=== PATIENT | male | born 1965 | race Caucasian/White ===

== ENCOUNTER 2022-07-08 06:26 | Emergency (ER) | payer OTHER, SELFPAY ==
--- NOTE | ~2022-07-08 | CT_ITS ---
EXAMINATION: CT HEAD WITHOUT CONTRAST CLINICAL INFORMATION: Head injury. COMPARISON: None available. TECHNIQUE: Contiguous axial imaging was performed from the skull base to vertex without intravenous administration of contrast. Coronal and sagittal reformatted images were obtained. This CT examination was performed using dose optimization techniques as appropriate, variously including the following: *Automated exposure control *Adjustment of mA and/or kV according to patient size (this includes techniques or standardized protocols for targeted exams where dose is matched to indication/reason for exam; i.e. extremities or head) *Use of iterative reconstruction technique DLP: 733 mGy-cm FINDINGS: The cortical sulci are normal. The lateral ventricles are symmetrical. The third and fourth ventricles are in their normal midline position. The basilar and prepontine cisterns are unremarkable. There is no acute intra or extracerebral abnormality. There is no mass effect or midline shift. Sections through the bony calvarium are unremarkable. The paranasal sinuses show mild mucosal thickening in the ethmoid sinuses, right greater than left. Small retention cyst versus inflammatory polyps are seen in the right maxillary, right sphenoid and left maxillary sinuses. The bony orbits and orbital contents are unremarkable. Mild anterior nasal septal deviation, apex of the right is noted. CT/CT head/brain wo IV con IMPRESSION: 1. No acute intracranial pathology. 2. Mild inflammatory changes in the paranasal sinuses.
--- NOTE | ~2022-07-08 | XR_ITS ---
EXAMINATION: XR CHEST CLINICAL INFORMATION: Generalized weakness. COMPARISON: 10/23/2016 chest radiograph. TECHNIQUE: Frontal view of the chest was obtained. FINDINGS: No significant abnormality is noted involving the heart, lungs, mediastinum, bony thorax or soft tissues. XR/XR chest 1V IMPRESSION: No acute cardiopulmonary process.
[2022-07-08 06:33] VITALS: BP 128/90; BP 132/81; PULSE 78; RESP 20; TEMP 36.7; O2SAT 90; O2SAT 94; BMI 38.6
--- NOTE | 2022-07-08 06:38 | ECG_ITS ---
Test Reason : SYNCOPE Blood Pressure : / mmHG Vent. Rate : 081 BPM Atrial Rate : 081 BPM P-R Int : 200 ms QRS Dur : 088 ms QT Int : 374 ms P-R-T Axes : 034 005 017 degrees QTc Int : 434 ms Normal sinus rhythm Normal ECG When compared with ECG of 23-OCT-2016 11:21, No significant change was found Referred By: Generic ED Physician Electronically Signed By:BENEDICT CROSS MD
[2022-07-08 06:56] LABS: MANUAL DIFF FLAG NO
[2022-07-08 07:03] LABS: Basophils Absolute Auto 0.1 X10*3/uL (0.0-0.2); Basophils Percent Auto 1.5 % (0-2); Eosinophils Absolute Auto 0.1 X10*3/uL (0.0-0.4); Eosinophils Percent Auto 2.2 % (0-4); Hematocrit 35.2 % (42.0-52.0); Hemoglobin 11.7 g/dl (14.0-18.0); Imm Gran Abs Auto 0.01 X10*3/uL (0.00-0.03); Imm Gran Pct Auto 0.2 % (0.0-0.4); Lymphocytes Absolute Auto 1.9 X10*3/uL (1.2-4.9); Mean Corpuscular HGB Conc 33.2 g/dl (31.0-36.0); Mean Corpuscular Hemoglobin 26.5 pg (27.0-33.0); Mean Corpuscular Volume 79.6 fL (80.0-98.0); Mean Platelet Volume 9.5 fL (9.4-12.4); Monocytes Absolute Auto 0.4 X10*3/uL (0.1-1.2); Monocytes Percent Auto 7.8 % (2-11); Neutrophils Absolute Auto 2.2 x10*3/uL (2.0-8.3); Neutrophils Percent Auto 48.3 % (45-73); Platelet Count 216 X10*3/uL (160-400); Red Blood Count 4.42 X10*6/uL (4.60-5.80); Red Cell Distribution Width 13.8 % (11.0-16.0); White Blood Count 4.6 X10*3/uL (4.8-10.8)
--- NOTE | 2022-07-08 07:14 | ED_ITS ---
HPI - General Adult General Chief complaint: Fall Stated complaint: Weakness/fall/bilateral leg pain Time Seen by Provider: 07/08/22 07:04 Source: patient Mode of arrival: EMS Limitations: no limitations History of Present Illness HPI narrative: 56-year-old male who presents with generalized weakness and falls. Patient's symptoms started yesterday. He fell striking the back of his head. He is unclear whether he lost consciousness. He does have a [id number] headache. Headache is in the occipital area that does not radiate. Not associated with nausea, vomiting, photophobia. He denies any neck pain. Regarding the fall, he reports having felt numbness and generalized weakness in his bilateral lower extremities with sharp pains which brought him to fall. He had several episodes of this yesterday. He denied any chest pain, shortness breath, palpitations, lightheadedness. He does complain of some dysuria but no frequency, urgency. No blood in the urine. Denies any abdominal pain. He had 1 episode of nausea vomiting yesterday. He has had episodes like this in the past but not as severe as today. Right now his predominant complaint is bilateral lower extremity sharp pain. It is generalized in lower extremities. Does not radiate. There is no clear relieving or exacerbating features. He denies any swelling. Pain is generally in the lower extremities. He denies any loss of bowel or bladder control. Denies any saddle paresthesias. Denies any fevers or chills. Related Data Allergies Allergy/AdvReac Type Severity Reaction Status Date / Time aspirin [ASA] Allergy Unknown vomiting Unverified 11/22/19 14:50 Penicillins [PENICILLINS] Allergy Unknown pt states Unverified 11/22/19 14:50 he turns red PMFSH Social History Social History Alcohol intake: never Smoked in Last 30 Days: No Use of substances other than those prescribed or required for medical reasons: No Advance Directives: No Physical Exam ED Vital Signs: Vital Signs - 24 hr 07/08/22 06:33 07/08/22 07:32 07/08/22 08:01 Temperature 98.0 F 97.8 F 97.6 F Pulse Rate 78 77 76 Respiratory Rate 20 19 16 Blood Pressure 132/81 133/87 120/77 Pulse Oximetry 90 L 94 Oxygen Delivery Method Room Air Nasal Cannula Oxygen Flow Rate 2 07/08/22 08:09 07/08/22 09:28 07/08/22 10:35 Temperature 97.6 F 97.6 F 98.4 F Pulse Rate 75 75 79 Respiratory Rate 16 12 16 Blood Pressure 120/77 125/85 115/69 Pulse Oximetry 95 95 95 Oxygen Delivery Method Nasal Cannula Nasal Cannula Room Air Oxygen Flow Rate 2 2 BMI result Body Mass Index 38.6 GEN: Well developed, no acute distress, alert, oriented HEENT: Normocephalic, atraumatic, normal external ears, nose appears normal, no oropharyngeal edema or exudates Eyes: Normal to appearance Neck: Supple, no lymphadenopathy Respiratory: Talks in complete sentences, no respiratory distress, clear to auscultation bilaterally Cardiovascular: Regular rate and rhythm, no murmurs rubs or gallops Abdomen: Soft, nontender, nondistended, no guarding, no rebound Back: No CVA tenderness Extremities: No clubbing cyanosis or edema Neurologic: No focal neurologic deficits, cranial nerves 2-12 intact, strength is 5/5 bilaterally Skin: No rash Course Course Course Narrative: 56-year-old male presents with generalized weakness, bilateral leg pain. His examination was nonfocal. His abdomen was benign. He has no neck pain, tenderness and no nuchal rigidity. He is claiming have occipital head pain where he struck his head. He is unclear whether he lost consciousness. Patient will have laboratory analysis performed including urinalysis. I will provided with analgesia and antiemetics. Will provided with IV fluids and re-evaluate following workup. Reevaluation(s) Reevaluation #1: Patient's workup is complete. There are no significant acute abnormalities indicating why he patient may have fallen. There is no evidence of significant traumatic injury. Patient has been able to ambulate with a walker which is his baseline. He is complaining of bilateral leg pain. He has been provided with Tylenol. We discussed discharge and is comfortable with discharge at this time patient of it is aware of reasons to return to the hospital. Time: 11:29 Medications Administered Discontinued Medications Generic Name Dose Route Start Last Admin Trade Name Freq PRN Reason Stop Dose Admin Sodium Chloride 1,000 mls @ 999 mls/hr 07/08/22 07:15 07/08/22 09:30 Ns IV 07/08/22 08:15 Infused .Q1H1M JESSICA Infusion Iohexol 100 ml 07/08/22 08:18 07/08/22 08:25 Iohexol 350 Mg/Ml 100 Ml Infus..Btl IV 07/08/22 08:19 Not Given ONCE ONE Medical Decision Making Medical Decision Making [facility] Narrative: 56-year-old male with diabetes, seizure disorder presents after multiple falls in last 24 hours. His examination was benign except he appeared generally weak with dry mucous membranes. His abdomen was soft and nontender. His lungs are clear to auscultation bilaterally. Our plan will be to obtain routine laboratory analysis including urinalysis. We will obtain a CT scan of the head given his head injury and unclear whether he lost consciousness. Will take a chest x-ray in order to make sure there are no cardiac infiltrates causing his weakness although his lungs are clear to auscultation. His abdomen was soft and nontender. There is no indication for emergent imaging at this time. There is unlikely to be colitis, diverticulitis, gastroenteritis, biliary colic, catastrophic abdominal pathology. Differential Diagnosis Differential Diagnoses: The differential diagnosis associated with the presentation includes (Weakness, anemia, hyponatremia, hypokalemia, glucose metabolism issue, myositis, viral syndrome) Admission/Observation Consideration of admission/observation: Escalation of care including admission/observation considered Lab Data [facility] Lab Attestation statement: I reviewed the patient's lab results. 07/08/22 06:52 07/08/22 06:52 Labs: Lab Results 07/08/22 07/08/22 07/08/22 Range/Units 06:52 06:52 06:52 WBC 4.6 L (4.8-10.8) X10*3/uL RBC 4.42 L (4.60-5.80) X10*6/uL Hgb 11.7 L (14.0-18.0) g/dl Hct 35.2 L (42.0-52.0) % MCV 79.6 L (80.0-98.0) fL MCH 26.5 L (27.0-33.0) pg MCHC 33.2 (31.0-36.0) g/dl RDW 13.8 (11.0-16.0) % Plt Count 216 (160-400) X10*3/uL MPV 9.5 (9.4-12.4) fL Immature Gran % (Auto) 0.2 (0.0-0.4) % Neut % (Auto) 48.3 (45-73) % Lymph % (Auto) 40.0 (20-40) % Esmeralda % (Auto) 7.8 (2-11) % Eos % (Auto) 2.2 (0-4) % Baso % (Auto) 1.5 (0-2) % Lymph # (Auto) 1.9 (1.2-4.9) X10*3/uL Esmeralda # (Auto) 0.4 (0.1-1.2) X10*3/uL Eos # (Auto) 0.1 (0.0-0.4) X10*3/uL Baso # (Auto) 0.1 (0.0-0.2) X10*3/uL Abs Immat Gran (auto) 0.01 (0.00-0.03) X10*3/uL Absolute Neuts (auto) 2.2 (2.0-8.3) x10*3/uL Absolute Nucleated RBC 0.000 (0.0-0.012) X10*3/uL Nucleated RBC % (auto) 0.0 (0.0-0.2) /100WBC Sodium 131 L (135-145) mmol/L Potassium 4.1 (3.3-5.1) mmol/L Chloride 95 L (96-108) mmol/L Carbon Dioxide 25 (22-29) mmol/L Anion Gap 15 (12-20) BUN 6 L (9-16) mg/dL Creatinine 0.72 (0.5-1.4) mg/dL Estim Creat Clear Calc 126.6 Estimated GFR > 60 Random Glucose 133 H (60-115) mg/dL Estimat Average Glucose 148 mg/dL Hemoglobin A1c % 6.8 % Calcium 8.8 (8.4-10.2) mg/dL Total Bilirubin 0.3 (0.0-1.0) mg/dL AST 30 (5-37) U/L ALT 37 (0-40) U/L Alkaline Phosphatase 76 (39-117) U/L Total Creatine Kinase 102 (38-174) U/L Total Protein 6.7 (6.5-8.0) g/dL Albumin 3.9 (3.5-5.0) g/dL Urine Color Urine Appearance Urine pH (5.0-9.0) Ur Specific Penfield (1.005-1.025) Urine Protein (Neg-Trace) mg/dL Urine Glucose (UA) (Negative) mg/dL Urine Ketones (Negative) mg/dL Urine Blood (Negative) Urine Nitrite (Negative) Ur Leukocyte Esterase (Negative) 07/08/22 Range/Units 07:38 WBC (4.8-10.8) X10*3/uL RBC (4.60-5.80) X10*6/uL Hgb (14.0-18.0) g/dl Hct (42.0-52.0) % MCV (80.0-98.0) fL MCH (27.0-33.0) pg MCHC (31.0-36.0) g/dl RDW (11.0-16.0) % Plt Count (160-400) X10*3/uL MPV (9.4-12.4) fL Immature Gran % (Auto) (0.0-0.4) % Neut % (Auto) (45-73) % Lymph % (Auto) (20-40) % Esmeralda % (Auto) (2-11) % Eos % (Auto) (0-4) % Baso % (Auto) (0-2) % Lymph # (Auto) (1.2-4.9) X10*3/uL Esmeralda # (Auto) (0.1-1.2) X10*3/uL Eos # (Auto) (0.0-0.4) X10*3/uL Baso # (Auto) (0.0-0.2) X10*3/uL Abs Immat Gran (auto) (0.00-0.03) X10*3/uL Absolute Neuts (auto) (2.0-8.3) x10*3/uL Absolute Nucleated RBC (0.0-0.012) X10*3/uL Nucleated RBC % (auto) (0.0-0.2) /100WBC Sodium (135-145) mmol/L Potassium (3.3-5.1) mmol/L Chloride (96-108) mmol/L Carbon Dioxide (22-29) mmol/L Anion Gap (12-20) BUN (9-16) mg/dL Creatinine (0.5-1.4) mg/dL Estim Creat Clear Calc Estimated GFR Random Glucose (60-115) mg/dL Estimat Average Glucose mg/dL Hemoglobin A1c % % Calcium (8.4-10.2) mg/dL Total Bilirubin (0.0-1.0) mg/dL AST (5-37) U/L ALT (0-40) U/L Alkaline Phosphatase (39-117) U/L Total Creatine Kinase (38-174) U/L Total Protein (6.5-8.0) g/dL Albumin (3.5-5.0) g/dL Urine Color Yellow Urine Appearance Clear Urine pH 7.5 (5.0-9.0) Ur Specific Penfield 1.010 (1.005-1.025) Urine Protein Negative (Neg-Trace) mg/dL Urine Glucose (UA) Negative (Negative) mg/dL Urine Ketones Negative (Negative) mg/dL Urine Blood Negative (Negative) Urine Nitrite Negative (Negative) Ur Leukocyte Esterase Negative (Negative) Independent Interpretation I performed an independent interpretation of an: EKG (Normal some heart rate 81, nonspecific T-wave changes, no acute ST elevations or depressions, normal intervals), Plain X-Ray (Chest: NAD) and CT Scan (Head: no acute intracranial pathology) Radiology Impression Discussion of test interpretation with radiology: I have reviewed the radio logist's reading. ( CT/CT head/brain wo IV con IMPRESSION: 1. No acute intracranial pathology. 2. Mild inflammatory changes in the paranasal sinuses. Dictated By:Zach Saldanaigned By:<Electronically signed by Zach Saldana MD in [place]>07/08/22 0802) Radiologist Impression: XR/XR chest 1V IMPRESSION: No acute cardiopulmonary process. ? Dictated By: Zach Saldana MD External Record Review External record reviewed: Other (No patient records available) Prescription Management I considered prescription management with: Pain Medication and Antibiotic Chronic Conditions Patient?s care impacted by: Diabetes Discharge Plan Discharge Clinical Impression: Generalized weakness, Head injury, Bilateral leg pain Patient Disposition: Home, Self-Care Instructions: Leg Pain (ED), Weakness (ED), Head Injury (ED) Referrals: Physician,Unknown J [Primary Care Provider] - 2 days
[2022-07-08 07:17] LABS: Anion Gap 15 (12-20)
[2022-07-08 07:23] LABS: Alanine Aminotransferase 37 U/L (0-40); Albumin Level 3.9 g/dL (3.5-5.0); Alkaline Phosphatase 76 U/L (39-117); Aspartate Amino Transferase 30 U/L (5-37); Bilirubin Total 0.3 mg/dL (0.0-1.0); Blood Urea Nitrogen 6 mg/dL (9-16); Calcium 8.8 mg/dL (8.4-10.2); Carbon Dioxide 25 mmol/L (22-29); Chloride 95 mmol/L (96-108); Creatinine Clr Calc Pharmacy 126.6; Estimated Glomerular Filt Rate > 60; Glucose Random 133 mg/dL (60-115); Potassium 4.1 mmol/L (3.3-5.1); Sodium 131 mmol/L (135-145); Total Protein 6.7 g/dL (6.5-8.0)
[2022-07-08 07:32] VITALS: BP 133/87; PULSE 77; RESP 19; TEMP 36.6; O2SAT 94
--- NOTE | 2022-07-08 07:40 | MHC.EDTECH ---
Pt placed on bed crespo. Urinal given to pt. Urine sample collected and sent to lab. call sumner in reach, able to make needs known.
[2022-07-08 07:48] LABS: Appearance Urine Clear; Color Urine Yellow; Glucose Urine UA Negative (Negative); Leukocyte Esterase Urine Negative (Negative); Nitrite Urine Negative (Negative); PH 7.5 (5.0-9.0); Urine Blood Negative (Negative); Urine Ketones Negative (Negative); Urine Protein Negative (Neg-Trace)
[2022-07-08 08:01] VITALS: BP 120/77; PULSE 76; RESP 16; TEMP 36.4
[2022-07-08 08:04] LABS: Estimated Average Glucose 148 mg/dL; Hemoglobin A1c % 6.8 %
[2022-07-08 08:09] VITALS: BP 120/77; PULSE 75; RESP 16; TEMP 36.4; O2SAT 95
[2022-07-08] MEDS: 0.9 % Sodium Chloride 1,000 ML 999 ML IV (08:11)
--- NOTE | 2022-07-08 08:14 | PC.NURSE ---
pt is a/o x 4 no sob/george speaks in full sentences. lungs - cta. heart sounds - regular. abd soft and non-tender, bs + x 4 quads. c/o 9/10 eda leg pain. pt is aware of plan of care.
[2022-07-08 09:28] VITALS: BP 125/85; PULSE 75; RESP 12; TEMP 36.4; O2SAT 95
--- NOTE | 2022-07-08 10:23 | MHC.EDTECH ---
Full bed change completed. Pt returned to bed and reconnected to monitor. Call sumner in reach. Bed in low, locked position.
[2022-07-08 10:35] VITALS: BP 115/69; PULSE 79; RESP 16; TEMP 36.9; O2SAT 95
--- NOTE | 2022-07-08 11:34 | PC.NURSE ---
PT AMBULATES TO THE BATHROOM, HE HAD A STEADY GAIT, STATES HE USES AN ASSISTIVE DEVICE THAT IS HOME
[2022-07-08] MEDS: Acetaminophen 325 MG TABLET 975 MG PO (11:45)
== END 2022-07-08 11:58 | disposition home or self-care (01) ==
PROVIDERS: Emergency Provider Emergency Medicine
DX: R53.1 Weakness (principal); S09.90XA Unspecified injury of head, initial encounter; W17.89XA Other fall from one level to another, initial encounter; M79.605 Pain in left leg; M79.604 Pain in right leg; E11.9 Type 2 diabetes mellitus without complications; Z91.81 History of falling; Y93.9 Activity, unspecified; Y92.039 Unspecified place in apartment as the place of occurrence of the external cause; Y99.9 Unspecified external cause status
CPT/HCPCS: 36415; 70450; 71045; 80053; 81003; 82550; 83036; 85025; 93005; 96360; 99284; 99285; Q9967

== ENCOUNTER 2025-02-09 17:01 | Emergency (ER) | payer OTHER, SELFPAY ==
--- NOTE | ~2025-02-09 | CT_ITS ---
CLINICAL HISTORY: lower abd pain CT abdomen and pelvis with contrast Comparison: None provided Findings: The lung bases are clear. Kidneys, spleen, adrenal glands, pancreas are unremarkable. The liver is normal in size, however there is diffuse fatty infiltration. The gallbladder is absent. No intrahepatic biliary dilatation. The common bile duct measures up to 8 mm in diameter, likely due to reservoir effect. No bowel obstruction, pneumoperitoneum, or pneumatosis. There are scattered colonic diverticula, however no evidence of diverticulitis. Abdominal aorta is normal caliber. No lymphadenopathy. Pelvic contents unremarkable. Normal appendix. Urinary bladder and prostate gland are unremarkable. The bones are intact. No acute fracture deformity. Chronic appearing compression deformity at T7. IMPRESSION: No acute findings. Hepatic steatosis. This document has been electronically signed by: Richmond Amanda MD on 02/09/2025 20:36:15
[2025-02-09 17:04] VITALS: BP 137/76; BP 170/110; PULSE 90; PULSE 92; RESP 22; TEMP 36.6; O2SAT 94; O2SAT 97; BMI 39.5
--- OUTSIDE RECORDS SUMMARY | 2025-02-09 17:41 | XMS_ITS | Continuity of Care Document ---
Author Name [facility], Medical Address [address] [place] [id number] Organization Unknown Address [address] [place] [address] Medications No known medications Problems No known problems
--- OUTSIDE RECORDS SUMMARY | 2025-02-09 17:41 | XMS_ITS | Clinical Summary ---
Author Organization [facility] Address [address] [place] [address] Phone Care Team Providers Care Special Effects Specialist Name Role Phone Steffany Claire MD Primary Care Provider [phone] Allergies Active Allergy Reactions Criticality Noted Date Comments Aspirin Nausea And Vomiting 02/11/2024 Penicillins Nausea And Vomiting 02/11/2024 Medications famotidine (PEPCID) 40 mg tablet Take 1 tablet (40 mg total) by mouth 2 (two) times a day. Active albuterol HFA (PROAIR HFA ; PROVENTIL HFA ; VENTOLIN HFA) 90 mcg/actuation inhaler Inhale 2 puffs by mouth every 6 (six) hours if needed for wheezing. Active multivitamin tablet Take 1 tablet by mouth 1 (one) time each day. Active amLODIPine (NORVASC) 10 mg tablet Take 1 tablet (10 mg total) by mouth 2 (two) times a day. Active riboflavin (VITAMIN B2) 100 mg tablet Take 1 tablet (100 mg total) by mouth 1 (one) time each day. Active metoprolol tartrate (LOPRESSOR) 50 mg tablet Take 1 tablet (50 mg total) by mouth 2 (two) times a day. Active pravastatin (PRAVACHOL) 40 mg tablet Take 1 tablet (40 mg total) by mouth at bedtime. Active meclizine (ANTIVERT) 25 mg tablet Take 1 tablet (25 mg total) by mouth 3 (three) times a day if needed for dizziness. Active acetaminophen (TYLENOL 8 HOUR) 650 mg 8 hr tablet Take 1 tablet (650 mg total) by mouth every 8 (eight) hours if needed for mild pain. Do not crush, chew, or split. Active clopidogreL (PLAVIX) 75 mg tablet Take 1 tablet (75 mg total) by mouth 1 (one) time each day. Active semaglutide (Rybelsus) 7 mg tablet Take 1 tablet (7 mg total) by mouth 1 (one) time each day. Take with 4 ounces (1/2 cup) of water on empty stomach, 30 min prior to other medication or food. Active loratadine (CLARITIN REDITABS) 10 mg dispersible tablet Dissolve 1 tablet (10 mg total) on top of the tongue 1 (one) time each day. Active SUMAtriptan (IMITREX) 25 mg tablet Take 1 tablet (25 mg total) by mouth 1 (one) time if needed for migraine. May repeat dose once in 2 hours if no relief. Do not exceed 2 doses in 24 hours. Active OXcarbazepine (TRILEPTAL) 150 mg tablet Take 1 tablet (150 mg total) by mouth 3 (three) times a day. Active OXcarbazepine (TRILEPTAL) 300 mg tablet Take 1 tablet (300 mg total) by mouth 3 (three) times a day. Active gabapentin (NEURONTIN) 300 mg capsule Take 1 capsule (300 mg total) by mouth 2 (two) times a day. Active lacosamide (Vimpat) 100 mg tablet Take 1 tablet (100 mg total) by mouth 2 (two) times a day. Active benztropine (COGENTIN) 0.5 mg tablet Take 1 tablet (0.5 mg total) by mouth 2 (two) times a day. Active ziprasidone (GEODON) 80 mg capsule Take 1 capsule (80 mg total) by mouth 2 (two) times a day with meals. Active perphenazine 4 mg tablet Take 1 tablet (4 mg total) by mouth 2 (two) times a day. Active oxymetazoline (AFRIN) 0.05 % nasal spray Administer 2 sprays into each nostril 2 (two) times a day for 3 days. 30 mL 08/06/19 25 Active guaiFENesin (MUCINEX) 600 mg 12 hr tablet Take 2 tablets (1,200 mg total) by mouth 2 (two) times a day. Do not crush, chew, or split. 120 each 08/06/19 25 026 Active erythromycin 5 mg/gram (0.5 %) ophthalmic ointment Apply to left eye every 8 (eight) hours. Place a 1/2 inch ribbon of ointment into the lower eyelid. 1 g 09/04/19 25 Active ondansetron (ZOFRAN) 4 mg tabletIndicatio ns:Nausea and vomiting, unspecified vomiting type Take 1 tablet (4 mg total) by mouth every 6 (six) hours for 3 days. 12 tablet 01/13/20 25 025 Discontinued ondansetron (ZOFRAN) 4 mg tabletIndicatio ns:Nausea and vomiting, unspecified vomiting type Take 1 tablet (4 mg total) by mouth every 6 (six) hours for 3 days. 12 tablet 01/13/20 25 025 Active Problems No known active problems Encounters Date Type Department Care Team Description 01/11/2025 9:48 PM EST - 01/12/2025 3:57 AM EST Emergency [facility] Emergency [address] [place] [address] Nausea and vomiting, unspecified vomiting type (Primary Dx); Constipation, unspecified constipation type Discharge Disposition: Home or Self Care 01/01/2025 3:48 PM EDT - 01/01/2025 6:18 PM EDT [facility] Emergency [address] [place] [phone] Christophe Woodruff MD Fainsod, Joshua, MD Chest pain, unspecified type (Primary Dx); Acute non-recurrent maxillary sinusitis Discharge Disposition: Home or Self Care from Last 3 Months Surgical History Surgery Date Site/Laterality Comments COLONOSCOPY 2019 PROCEDURE: OUTSIDE COLONOSCOPY OTHER SURGICAL HISTORY 2018 PROCEDURE: HISTORY OTHER; COMMENT: Blepharoplasty of both eyelids OTHER SURGICAL HISTORY 05/24/2016 PROCEDURE: HISTORY OTHER; COMMENT: Aspiration of cataract by phacoemulsification COLONOSCOPY 2009 PROCEDURE: HISTORICAL COLONOSCOPY ESOPHAGOGASTRODUODENOSCOPY PROCEDURE: CT ESOPHAGOGASTRODUODENOSCOPY TRANSORAL DIAGNOSTIC Medical History Medical History Date Comments Head trauma DX:Head trauma Diverticulitis large intestine D X:Diverticulitis large intestine History of colonoscopy DX:Histor y of colonoscopy Compression fracture of spin e (CMS/HCC V24, CMS/HCC V28) DX:Compression fracture of s pine ([facility]) Constipation DX:Constipation H/O echocardiogram DX:H/O echoca rdiogram Gastroesophageal reflux dise ase with hiatal hernia DX:Gastroesophageal reflux d isease with hiatal hernia Irritable bowel syndrome DX:Irri table bowel syndrome Knee pain DX:Knee pain Lumbar radiculitis DX:Lumbar rad iculitis Nausea and vomiting DX:Nausea an d vomiting Class II obesity DX:Class II obe sity CONNOR (obstructive sleep apnea) DX :CONNOR (obstructive sleep apnea) Schizoaffective disorder ([facility] V24, [facility] V28) DX:Schizoaffective disorder ([facility]) Seizure disorder ([facility] V2 4, [facility] V28) DX:Seizure disorder ([facility]) Diabetes mellitus ([facility] V 24, [facility] V28) COPD (chronic obstructive pu lmonary disease) ([facility] V24, [facility] V28) Asthma Family History Medical History Relation Name Comments Coronary artery disease Brother 1 Diabetes Brother 1 type II Other: Alcoholism Brother 1 Diabetes Brother 2 Coronary artery disease Brother 3 Diabetes Brother 3 type II Alcohol abuse Father Coronary artery disease Father Diabetes Father type II Hypertension Father Hypertension Mother Other: Hyperlipidemia Mother Other: Thrombophilia Mother Diabetes Sister Relation Name Status Comments Brother 1 Brother 2 Alive Brother 3 Alive Father Mother Sister Social History Tobacco Use Types Packs/Day Years Used Date Smoking Tobacco: Never Smokeless Tobacco: Never Alcohol Use Standard Drinks/Week Comments No 0 (1 standard drink = 0.6 oz pur e alcohol) Sex and Gender Information Value Date Recorded Sex Assigned at Male 03/07/2024 4:07 PM EST Legal Sex Male 9:52 PM EST Gender Identity Male 03/07/2024 4:07 PM EST Sexual Orientation Straight 04/21/2024 4: 06 PM EST Obstetrics History Last Filed Vital Signs Vital Sign Reading Time Taken Comments Blood Pressure 117/75 01/12/2025 1:25 AM EST Pulse 75 01/12/2025 1:25 AM EST Temperature 36.8 C (98.2 F) 01/12/2025 1:25 AM EST Respiratory Rate 23 01/12/2025 1:25 AM EST Oxygen Saturation 93% 01/12/2025 1:25 AM EST Inhaled Oxygen Concentration - - Weight 104 kg (230 lb) 01/11/2025 11:34 PM EST Height 162.6 cm (5' 4.02 ) 01/11/2025 11:[address] Body Mass Index 39.46 01/11/2025 11:34 PM EST Plan of Treatment Health Maintenance Due Date Last Done Comments Colorectal Cancer Screening: Colonoscopy 1967 Diabetes: Annual Foot Exam 09/22/1977 Diabetes: Annual Retina Eye Exam 09/22/1977 Hepatitis B Vaccines (1 of 3 - 19+ 3-dose series) 09/22/1986 Pneumococcal Vaccine: 50+ Years (2 of 2 - PCV) 09/22/2017 01/28/2014, 12/21/2006 Zoster Vaccines (1 of 2) 09/22/2017 Cholesterol Screening (Lipid Panel) 02/06/2022 HIV Screening 02/06/2022 Hepatitis C Screening 02/06/2022 Medicare Annual Wellness Visit 02/06/2022 Social Influencers of Health Screening 02/06/2022 Diabetes: Annual Urine Albumin-Creatinine Ratio (uACR) 02/17/2022 Diabetes: Blood Sugar Control Test (HGBA1C) 02/17/2022 Depression Screening 03/07/2024 COVID-19 Vaccine ( season) 2024 12/31/2020, 04/28/2020, 04/07/2020 Influenza Vaccine (#1) 2024 , 01/01/2020, 12/18/2018, Additional history exists Diabetes: Annual GFR (Glomerular Filtration Rate) 01/11/2026 01/11/2025, 01/01/2025, 10/23/2024, Additional history exists Hypertension/CHF/CAD Annual BMP Blood Test 01/11/2026 01/11/2025, 01/01/2025, 10/23/2024, Additional history exists DTaP,Tdap,and Td Vaccines (4 - Td or Tdap) 08/11/2028 08/11/2018, 01/12/2008, 09/04/2001 RSV Immunization Adult Patients (1 - 1-dose 75+ series) 09/22/2042 HIB Vaccines Aged Out No longer eligi ble based on patient's age to complete this topic HPV Vaccines Aged Out No longer eligi ble based on patient's age to complete this topic Hepatitis A Vaccines Aged Out No long er eligible based on patient's age to complete this topic IPV Vaccines Aged Out No longer eligi ble based on patient's age to complete this topic MMR Vaccines Aged Out No longer eligi ble based on patient's age to complete this topic Meningococcal ACWY Vaccine Aged Out N o longer eligible based on patient's age to complete this topic Meningococcal B Vaccine Aged Out No l onger eligible based on patient's age to complete this topic RSV Immunization Patients Under 20 months Aged Out No longer eligible based on patient's age to complete this topic Varicella Vaccines Aged Out No longer eligible based on patient's age to complete this topic Procedures Procedure Name Priority Date/Time Associated Diagnosis Comments URINALYSIS WITH REFLEX MICROSCOPIC STAT 01/12/2025 1:23 AM EST URINALYSIS WITH REFLEX MICROSCOPIC STAT 01/12/2025 1:23 AM EST DRUG ABUSE SCREEN 8A PANEL, URINE STAT 01/12/2025 1:23 AM EST CBC WITH AUTO DIFFERENTIAL STAT 01/11/2025 10:23 PM EST LIPASE STAT 01/11/2025 10:23 PM EST COMPREHENSIVE METABOLIC PANEL STAT 01/11/2025 10:23 PM EST CBC AND DIFFERENTIAL STAT 01/11/2025 10:23 PM EST ECG ANNOTATED 01/02/2025 TROPONIN I HIGH SENSITIVITY STAT 01/01/2025 5:17 PM EDT XR CHEST 2 VIEWS STAT 01/01/2025 4:06 PM EDT TROPONIN I HIGH SENSITIVITY STAT 01/01/2025 4:00 PM EDT [id number], RSV, FLU A AND B QUALITATIVE RT-PCR, INTERNAL LAB STAT 01/01/2025 3:50 PM EDT CBC WITH AUTO DIFFERENTIAL STAT 01/01/2025 3:24 PM EDT B-TYPE NATRIURETIC PEPTIDE STAT 01/01/2025 3:24 PM EDT BASIC METABOLIC PANEL STAT 01/01/2025 3:24 PM EDT CBC AND DIFFERENTIAL STAT 01/01/2025 3:24 PM EDT ECG 12-LEAD STAT 01/01/2025 3:16 PM EDT from Last 3 Months Results * (ABNORMAL) Urinalysis with reflex microscopic (01/12/2025 1:23 AM EST) Specific [place] Urine 1.035(H) 1.003 - 1.030 LAB URINALYSIS - AUTOMATED METHOD 01/12/2025 2:21 AM [facility] pH, Urine 6.0 5.0 - 8.0 pH LAB URINALYSIS - AUTOMATED METHOD 01/12/2025 2:21 AM [facility] Leukocytes, Urine Negative Negative LAB URINALYSIS - AUTOMATED METHOD 01/12/2025 2:21 AM [facility] Nitrite, Urine Negative Negative LAB URINALYSIS - AUTOMATED METHOD 01/12/2025 2:21 AM [facility] Protein, Urine Negative <=Trace mg/dL LAB URINALYSIS - AUTOMATED METHOD 01/12/2025 2:21 AM [facility] Glucose, Urine >=1000(A) Negative mg/dL LAB URINALYSIS - AUTOMATED METHOD 01/12/2025 2:21 AM [facility] Ketones, Urine Trace(A) Negative mg/dL LAB URINALYSIS - AUTOMATED METHOD 01/12/2025 2:21 AM [facility] Urobilinogen , Urine 1.0 0.2 - 1.0 mg/dL LAB URINALYSIS - AUTOMATED METHOD 01/12/2025 2:21 AM [facility] Bilirubin, Urine Negative Negative LAB URINALYSIS - AUTOMATED METHOD 01/12/2025 2:21 AM [facility] Blood, Urine Negative Negative LAB URINALYSIS - AUTOMATED METHOD 01/12/2025 2:21 AM [facility] Urine Urine specimen obtained by clean catch procedure / Unknown Non-blood Collection / Unknown 01/12/2025 1:23 AM EST 01/12/2025 2:09 AM EST [facility] URINE ORDERABLES [facility] al Result [facility] [address] [place] [address], * (ABNORMAL) Drug abuse screen 8a panel, urine (01/12/2025 1:23 AM EST) Amphetamine Screen, Ur Negative Negative LAB CHEMISTRY METHOD 5 2:46 AM [facility] Comment:Certain OTC medicati ons containing ephedrine, phenylephrine, pseudoephedrine and phenylpropanolamine can cause false positive results. Barbiturate Screen, Ur Negative Negative LAB CHEMISTRY METHOD 5 2:46 AM [facility] Benzodiazepine Screen, Ur Negative Negative LAB CHEMISTRY METHOD 5 2:46 AM [facility] Cocaine Screen, Ur Negative Negative LAB CHEMISTRY METHOD 5 2:46 AM [facility] Opiate Screen, Ur Positive(A ) Negative LAB CHEMISTRY METHOD 5 2:46 AM [facility] Cannabinoid (THC) Screen, Ur Negative Negative LAB CHEMISTRY METHOD 5 2:46 AM [facility] Comment:Specimens from patie nts taking pantoprazole sodium (Protonix) have been shown to produce false positive results. Oxycodone Screen, Ur Negative Negative LAB CHEMISTRY METHOD 5 2:46 AM [facility] Fentanyl, Ur Negative Negative LAB CHEMISTRY METHOD 2:46 AM [facility] Urine Urine specimen obtained by clean catch procedure / Unknown Non-blood Collection / Unknown 01/12/2025 1:23 AM EST 01/12/2025 2:09 AM EST [facility] - 01/12/2025 2:46 AM EST Assay cutoffs: Amphetamines 1000 ng/mL Barbiturates 200 ng/mL Benzodiazepines 200 ng/mL Cocaine 300 ng/mL Fentanyl 1 ng/mL Opiates 300 ng/mL Oxycodone 100 ng/mL THC 50 ng/mL Semi-quantitative assay for screening purposes only. Unconfirmed screening result should not be used for non-medical purposes. *ALTERNATE METHOD CONFIRMATION DONE UPON REQUEST ONLY* us [facility] URINE ORDERABLES Fin al Result [facility] [address] [place] [address], * (ABNORMAL) CBC auto differential (01/11/2025 10:23 PM EST) Only the most recent of2 resultswithin the time period is included. WBC 5.6 4.8 - 10.8 K/mcL LAB HEMETOLOGY METHOD 01/12/2025 12:34 AM [facility] RBC 4.50 4.50 - 5.50 M/mcL LAB HEMETOLOGY METHOD 01/12/2025 12:34 AM [facility] Hemoglobin 13.6 13.5 - 17.5 g/dL LAB HEMETOLOGY METHOD 01/12/2025 12:34 AM [facility] Hematocrit 38.9(L) 42.0 - 54.0 % LAB HEMETOLOGY METHOD 01/12/2025 12:34 AM [facility] MCV 87.0 79.0 - 98.0 FL LAB HEMETOLOGY METHOD 01/12/2025 12:34 AM [facility] MCH 30.4 27.0 - 32.0 pcg LAB HEMETOLOGY METHOD 01/12/2025 12:34 AM [facility] MCHC 35.0 32.0 - 37.0 g/dL LAB HEMETOLOGY METHOD 01/12/2025 12:34 AM [facility] RDW 13.4 11.0 - 15.0 % LAB HEMETOLOGY METHOD 01/12/2025 12:34 AM [facility] Platelets 225 130 - 400 K/mcL LAB HEMETOLOGY METHOD 01/12/2025 12:34 AM [facility] MPV 10.8 7.0 - 11.0 FL LAB HEMETOLOGY METHOD 01/12/2025 12:34 AM [facility] NRBC 0.0 <1.0 % LAB HEMETOLOGY METHOD 01/12/2025 12:34 AM [facility] NRBC Absolute 0.00 <0.10 K/mcL LAB HEMETOLOGY METHOD 01/12/2025 12:34 AM [facility] Neutrophils Relative 44.4 % LAB HEMETOLOGY METHOD 01/12/2025 12:34 AM [facility] Lymphocytes Relative 44.2 % LAB HEMETOLOGY METHOD 01/12/2025 12:34 AM [facility] Monocytes Relative 7.0 % LAB HEMETOLOGY METHOD 01/12/2025 12:34 AM [facility] Eosinophils Relative 2.9 % LAB HEMETOLOGY METHOD 01/12/2025 12:34 AM [facility] Basophils Relative 1.3 % LAB HEMETOLOGY METHOD 01/12/2025 12:34 AM [facility] Immature Granulocytes Relative 0.2 % LAB HEMETOLOGY METHOD 01/12/2025 12:34 AM [facility] Neutrophils Absolute 2.49 1.50 - 7.00 K/mcL LAB HEMETOLOGY METHOD 01/12/2025 12:34 AM EST [facility] Lymphocytes Absolute 2.47 1.00 - 5.00 K/[facility] LAB HEMETOLOGY METHOD 01/12/2025 12:34 AM [facility] Monocytes Absolute 0.39 0.20 - 1.00 K/[facility] LAB HEMETOLOGY METHOD 01/12/2025 12:34 AM EST [facility] Eosinophils Absolute 0.16 0.00 - 0.50 K/[facility] LAB HEMETOLOGY METHOD 01/12/2025 12:34 AM [facility] Basophils Absolute 0.07 0.00 - 0.20 K/[facility] LAB HEMETOLOGY METHOD 01/12/2025 12:34 AM [facility] Immature Granulocytes Absolute 0.01 0.00 - 0.03 K/[facility] LAB HEMETOLOGY METHOD 01/12/2025 12:34 AM [facility] Blood Venous blood specimen / Unknown Venipuncture / Unknown 01/11/2025 10:23 PM EST 01/11/2025 11:54 PM EST Anisha Billings MD LAB BLOOD ORDERABLES Final Res ult [facility] [address] [place] [address], * Lipase (01/11/2025 10:23 PM EST) Lipase 34 13 - 75 unit/L LAB CHEMISTRY METHOD 01/12/2025 1:08 AM [facility] Blood Venous blood specimen / Unknown Venipuncture / Unknown 01/11/2025 10:23 PM EST 01/11/2025 11:54 PM EST Anisha Billings MD LAB BLOOD ORDERABLES Final Res ult [facility] [address] [place] [address], * (ABNORMAL) Comprehensive metabolic panel (01/11/2025 10:23 PM EST) Sodium 133 133 - 145 mmol/L LAB CHEMISTRY METHOD 01/12/2025 12:52 AM [facility] Potassium 4.1 3.5 - 5.5 mmol/L LAB CHEMISTRY METHOD 01/12/2025 12:52 AM [facility] Chloride 101 96 - 110 mmol/L LAB CHEMISTRY METHOD 01/12/2025 12:52 AM [facility] CO2 26 21 - 32 mmol/L LAB CHEMISTRY METHOD 01/12/2025 12:52 AM [facility] Anion Gap 6 3 - 11 LAB CHEMISTRY METHOD 01/12/2025 12:52 AM [facility] Glucose 346(H) 70 - 100 mg/dL LAB CHEMISTRY METHOD 01/12/2025 12:52 AM [facility] Comment:Lipemia present BUN 11 5 - 25 mg/dL LAB CHEMISTRY METHOD 01/12/2025 12:52 AM [facility] Creatinine 1.04 0.70 - 1.30 mg/dL LAB CHEMISTRY METHOD 01/12/2025 12:52 AM [facility] eGFR 84 >=60 mL/min/1. 73m2 LAB CHEMISTRY METHOD 01/12/2025 12:52 AM [facility] Comment:Calculation based on the Chronic Kidney Disease Epidemiology Collaboration (CKD-EPI) equation refit without adjustment for race. BUN/Creatinine Ratio 10.6 LAB CHEMISTRY METHOD 01/12/2025 12:52 AM [facility] Calcium 8.1(L) 8.5 - 10.5 mg/dL LAB CHEMISTRY METHOD 01/12/2025 12:52 AM [facility] AST (SGOT) 52(H) 10 - 42 unit/L LAB CHEMISTRY METHOD 01/12/2025 12:52 AM [facility] Comment:Lipemia present ALT (SGPT) 94(H) 10 - 60 unit/L LAB CHEMISTRY METHOD 01/12/2025 12:52 AM [facility] Comment:Lipemia present Alkaline Phosphatase 89 42 - 121 unit/L LAB CHEMISTRY METHOD 01/12/2025 12:52 AM [facility] Total Protein 6.4 6.0 - 8.0 g/dL LAB CHEMISTRY METHOD 01/12/2025 12:52 AM [facility] Albumin 3.7 3.2 - 5.0 g/dL LAB CHEMISTRY METHOD 01/12/2025 12:52 AM [facility] Total Bilirubin 0.6 0.0 - 1.4 mg/dL LAB CHEMISTRY METHOD 01/12/2025 12:52 AM [facility] Blood Venous blood specimen / Unknown Venipuncture / Unknown 01/11/2025 10:23 PM EST 01/11/2025 11:54 PM EST Anisha Billings MD LAB BLOOD ORDERABLES Final Res ult [facility] [address] [place] [address], * ECG-Annotated (01/02/2025) us Provider Onbase ECG ORDERABLES Final Result * Troponin I high sensitivity (01/01/2025 5:17 PM EDT) Only the most recent of2 resultswithin the time period is included. High Sensitivity Troponin I 4 <=79 ng/L LAB CHEMISTRY METHOD 01/01/2025 5:55 PM EDT [facility] Blood Venous blood specimen / Unknown Venipuncture / Unknown 01/01/2025 5:17 PM EDT 01/01/2025 5:26 PM EDT Narrative [facility] - 01/01/2025 5:55 PM EDT High levels of biotin in samples may falsely decrease hsTroponin values. Use caution when interpreting hsTroponin results in patients taking biotin who exhibit renal impairment (eGFR <60) or in patients taking more than 20 mg/day of biotin. us Tang Kramer MD LAB BLOOD ORDERABLES Final Res ult [facility] ([facility] [address] [place] [address], [place] [phone] * XR Chest 2 Views (01/01/2025 4:06 PM EDT) Anatomical Region Laterality Modality Body Radiographic Deneen ging 01/01/2025 4:21 PM EDT Impressions 01/01/2025 4:23 PM EDT FINDINGS/IMPRESSION: Hypoventilatory examination bronchovascular crowding and left basilar atelectasis versus infiltrate. Degenerative changes of the spine and shoulders. Cholecystectomy clips. -------- FINAL REPORT -------- Dictated By: Ravin Frausto Dictated Date: 01/01/2025 16:21 ET Assigned Physician: Ravin Frausto Reviewed and Electronically Signed By: Ravin Frausto Signed Date: 01/01/2025 16:23 ET Workstation ID: [id number] Transcribed By: Self Edit Transcribed Date: 01/01/2025 16:21 ET Narrative 01/01/2025 4:23 PM EDT XR CHEST 2 VIEWS INDICATION: dyspnea TECHNIQUE: XR CHEST 2 VIEWS COMPARISON: None Procedure Note Ravin Frausto MD - 01/01/2025 XR CHEST 2 VIEWS INDICATION: dyspnea TECHNIQUE: XR CHEST 2 VIEWS COMPARISON: None IMPRESSION: FINDINGS/IMPRESSION: Hypoventilatory examination bronchovascular crowdingand left basilar atelectasis versus infiltrate. Degenerative changes ofthe spine and shoulders. Cholecystectomy clips. -------- FINAL REPORT -------- Dictated By: Ravin Frausto Dictated Date: 01/01/2025 16:21 ET Assigned Physician: Ravin Frausto Reviewed and Electronically Signed By: Ravin Frausto Signed Date: 01/01/2025 16:23 ET Workstation ID: [id number] Transcribed By: Self Edit Transcribed Date: 01/01/2025 16:21 ET us Christophe Woodruff MD IMG XR PROCEDURES Final Result * [id number], RSV, Influenza A and B qualitative RT-PCR (01/01/2025 3:50 PM EDT) Pathologist [facility] Influenza A PCR Not Detected Not Detected LAB MICROBIOLOGY METHOD 01/01/2025 5:00 PM EDT [facility] Influenza B PCR Not Detected Not Detected LAB MICROBIOLOGY METHOD 01/01/2025 5:00 PM EDT [facility] RSV PCR Not Detected Not Detected LAB MICROBIOLOGY METHOD 01/01/2025 5:00 PM EDT [facility] SARS COV-2 Not Detected Not Detected LAB MICROBIOLOGY METHOD 01/01/2025 5:00 PM EDT [facility] Swab Both anterior nares / Unknown Non-blood Collection / Unknown 01/01/2025 3:50 PM EDT 01/01/2025 4:08 PM EDT us Chirstophe Woodruff MD LAB MICROBIOLOGY - GENERAL ORDE RABLES Final Result [facility] [address] [place] [address], * B-type natriuretic peptide (01/01/2025 3:24 PM EDT) BNP 19 <=100 pcg/mL LAB CHEMISTRY METHOD 01/01/2025 4:33 PM EDT [facility] Blood Venous blood specimen / Unknown Venipuncture / Unknown 01/01/2025 3:24 PM EDT 01/01/2025 3:47 PM EDT us Christophe Woodruff MD LAB BLOOD ORDERABLES Final Resu lt [facility] [address] [place] [address], [place] [phone] * (ABNORMAL) Basic metabolic panel (01/01/2025 3:24 PM EDT) Sodium 137 133 - 145 mmol/L LAB CHEMISTRY METHOD 01/01/2025 4:26 PM [facility] Potassium 3.7 3.5 - 5.5 mmol/L LAB CHEMISTRY METHOD 01/01/2025 4:26 PM [facility] Chloride 103 96 - 110 mmol/L LAB CHEMISTRY METHOD 01/01/2025 4:26 PM [facility] CO2 27 21 - 32 mmol/L LAB CHEMISTRY METHOD 01/01/2025 4:26 PM [facility] Anion Gap 7 3 - 11 LAB CHEMISTRY METHOD 01/01/2025 4:26 PM [facility] Glucose 153(H) 70 - 100 mg/dL LAB CHEMISTRY METHOD 01/01/2025 4:26 PM [facility] BUN 9 5 - 25 mg/dL LAB CHEMISTRY METHOD 01/01/2025 4:26 PM [facility] Creatinine 0.83 0.70 - 1.30 mg/dL LAB CHEMISTRY METHOD 01/01/2025 4:26 PM [facility] eGFR 102 >=60 mL/min/1. 73m2 LAB CHEMISTRY METHOD 01/01/2025 4:26 PM [facility] [facility] Comment:Calculation based on the Chronic Kidney Disease Epidemiology Collaboration (CKD-EPI) equation refit without adjustment for race. BUN/Creatinine Ratio 10.8 LAB CHEMISTRY METHOD 01/01/2025 4:26 PM [facility] Calcium 9.1 8.5 - 10.5 mg/dL LAB CHEMISTRY METHOD 01/01/2025 4:26 PM EDT [facility] Blood Venous blood specimen / Unknown Venipuncture / Unknown 01/01/2025 3:24 PM EDT 01/01/2025 3:47 PM EDT Christophe Woodruff MD LAB BLOOD ORDERABLES Final Resu lt Performing Organization Address City/[facility]/ZIP Co de Phone Number [facility] ([facility] [address] [place] [address], [place] [phone] * ECG 12 lead (01/01/2025 3:16 PM EDT) Ventricular Rate ECG 68 BPM GEMUSE Atrial Rate 68 BPM GEMUSE P-R Interval 192 ms GEMUSE QRS Duration 84 ms GEMUSE Q-T Interval 394 ms GEMUSE QTc 418 ms GEMUSE P Wave [place] 29 degrees GEMUSE R [place] 4 degrees GEMUSE T [place] 22 degrees GEMUSE ECG Interpretation Normal sinus rhythm T wave abnormality, consider anterior ischemia Abnormal ECG When compared with ECG of 14-OCT-2024 13:39, Inverted T waves have replaced nonspecific T wave abnormality in Anterior leads Confirmed by MD CHELSIE, LEROY ([id number]) on 01/01/2025 7:22:59 PM GEMUSE 01/01/2025 3:16 PM EDT 01/01/2025 7:22 PM EDT Christophe Woodruff MD ECG ORDERABLES Final Result Performing Organization Address City/[facility]/ZIP Co de Phone Number GEMUSE from Last 3 Months Insurance [facility]IC[facility] Member Subscriber Plan / Payer (Ef fective 2018-Present) Name:MAYNOR NG Relation to Subscriber:Self Name:Maynor Ng Payer ID:[id number] Group ID:[id number] Type:Not on file Address: [place] [address] [place] [id number] Advance Directives Documents on File Type Date Recorded Patient [place] Expl anation Health Care Decision (hx) 05/22/2020 [place] [employer] DIRECTIVE Health Care Decision (hx) 05/22/2020 AD [employer] DIRECTIVE Health Care Decision (hx) 05/22/2020 AD [employer] DIRECTIVE Health Care Decision (hx) 05/22/2020 AD [employer] DIRECTIVE Health Care Decision (hx) 05/22/2020 AD [employer] DIRECTIVE Health Care Decision (hx) 05/22/2020 AD [employer] DIRECTIVE Health Care Decision (hx) 05/22/2020 AD [employer] DIRECTIVE Health Care Decision (hx) 05/22/2020 AD [employer] DIRECTIVE Health Care Decision (hx) 05/22/2020 AD [employer] DIRECTIVE Health Care Decision (hx) 05/22/2020 AD [employer] DIRECTIVE Health Care Decision (hx) 05/22/2020 AD [employer] DIRECTIVE Health Care Decision (hx) 05/22/2020 AD [employer] DIRECTIVE Health Care Decision (hx) 05/22/2020 AD [employer] DIRECTIVE Health Care Decision (hx) 05/22/2020 AD [employer] DIRECTIVE Health Care Decision (hx) 05/22/2020 AD [employer] DIRECTIVE Health Care Decision (hx) 05/22/2020 AD [employer] DIRECTIVE Health Care Decision (hx) 05/22/2020 AD [employer] DIRECTIVE Health Care Decision (hx) 05/22/2020 AD [employer] DIRECTIVE Health Care Decision (hx) 05/22/2020 AD [employer] DIRECTIVE Health Care Decision (hx) 05/22/2020 AD [employer] DIRECTIVE Health Care Decision (hx) 05/22/2020 AD [employer] DIRECTIVE Health Care Decision (hx) 05/22/2020 AD [employer] DIRECTIVE Health Care Decision (hx) 05/22/2020 AD [employer] DIRECTIVE Health Care Decision (hx) 05/22/2020 AD [employer] DIRECTIVE Health Care Decision (hx) 05/22/2020 AD [employer] DIRECTIVE Health Care Decision (hx) 05/22/2020 AD [employer] DIRECTIVE Health Care Decision (hx) 05/22/2020 AD [employer] DIRECTIVE Health Care Decision (hx) 05/22/2020 AD [employer] DIRECTIVE Health Care Decision (hx) 05/22/2020 AD [employer] DIRECTIVE Health Care Decision (hx) 05/22/2020 AD [employer] DIRECTIVE Health Care Decision (hx) 05/22/2020 AD [employer] DIRECTIVE Health Care Decision (hx) 05/22/2020 AD [employer] DIRECTIVE Health Care Decision (hx) 05/22/2020 AD [employer] DIRECTIVE Health Care Decision (hx) 05/22/2020 AD [employer] DIRECTIVE Health Care Decision (hx) 05/22/2020 AD [employer] DIRECTIVE Health Care Decision (hx) 05/22/2020 AD [employer] DIRECTIVE Care Teams Special Effects Specialist Relationship Specialty Start Date End Date Steffany Claire MD [address] [place] [address] PCP - General Internal Medicine 12/12/14
--- OUTSIDE RECORDS SUMMARY | 2025-02-09 17:41 | XMS_ITS | Continuity of Care Document ---
Author Name [facility], Medical Address [address] [place] [id number] Organization Unknown Address [address] [place] [id number] Medications No known medications Problems No known problems
--- OUTSIDE RECORDS SUMMARY | 2025-02-09 17:41 | XMS_ITS | Encounter Summary ---
Author Organization [facility] Address [address] [place] [address] Encounters * CPT with Medical [facility] at [employer] on 2024-10-23 { reasonForRequest : Patient feels weak, and hands are swollen. , patientRe ports : , denies :[ Dickson Flash, circumferential dickson ,"Dickson reported with black tissue to the area , Open skin area after a fall with uncontrolled bleeding , Abscess/infection with streaking noted, presence of fever or without ], chiefComplaints : Diarrhea, Dizziness, Headache, Weakness, Wound Care , pmh : COPD/Asthma, Hypertension, Severe Persistent Mental Illness (SPMI), Epilepsy/Seizure Disorder, Diabetes Mellitus Type 2, Asthma , allergies : Penicillins, Aspirin&q uot;, otherAllergies :null, painAssessment : , visitOutcome&quot ;: , additionalComments : 59 y.o male complains of Diarrhea, Dizziness, He adache, Weakness, Wound Care\n\nPatient calling in to place a referral.\nPatient who woke up with hand and face swelling.\nHe denies any lip or tongue swelling, no difficulty swallowing, no wheezing or stridor heard by this nurse-\nPatient does wear 2L o2 at HS, and has kept on this morning, he does not check his o2 levels and his nurse has not arrived yet.\nHe is unsure if his face has any redness, rashiness or patches.\nStates his hands are \ dark\ , no red or warm, but they are painful.\nHe has some chest pain, but is not new, has it intermittently with breathing.\nDenies any newfoods, medications, or toiletries.\nHe does endorse headaches and dizziness.\nDenies fever/chills, no nausea or vomiting, +diarrhea.\SDis blood sugar was 157 this morning.\nHe would like to be evaluated.\n\nI provided information on the mobile health provider response time and advised the patient and/or caregiver to monitor reported signs and symptoms. I discussed the warning signs of when to seek emergency care. } Patient alert and oriented cc: pain at site of raised dark spots on back times months. Patient alsocomplains of lower left abdominal pain one of 10, slightly tender with bloated firm feeling to abdomen. Patient also reports green diarrhea times one this morning. Patient denies nausea vomiting fever, chills, weakness, or any other pain or complaints. Patient reports he had dizziness and chest pain earlier, but that has subsided. Patient reports no history of diverticulitis. Patient reports somememory loss, at baseline. Patient pink warm dry, lung sounds clear negative increased work of breathing positive full sentences, abdomen, firm, some tenderness noted left lower quadrant. No edema noted. Patient walks with a cane. [facility] orders patient to [facility] for CAT scan to rule out diverticulitis. Patient agrees, press his lifeline button activating 911 response. Tab CARVAL[facility] Med[facility] to [facility] ED. IV_(FLUIDS_AND/OR_MEDICATION), MEDICATION_IM, ORAL_MEDICATION, EKG, POC_BLOODWORK, POC_FLU_STREP, COVID_TEST, WOUND_CARE, ORTHOSTATIC_VITAL_SIGNS, PO_MEDICATION Written by Medical [facility] on 2024-10-23
--- OUTSIDE RECORDS SUMMARY | 2025-02-09 17:41 | XMS_ITS | Continuity of Care Document ---
Author Organization [facility] Address [address] [place] [id number] Care Team Providers Care Fudge Candy Maker Name Role Phone HIM CCA OTHER ODILIA BADILLO Primary Care Provider [phone] Assessment No assessment recorded. Plan of Treatment Reminders Order Date Submit Date Provider Last Modified By Organization Details Last Modified Time Details Appointments None record ed. Lab None record ed. Referral None record ed. Procedures None record ed. Surgeries None record ed. Imaging None record ed. Medication Orders None record ed. Patient TargetsNo targets recorded. Patient InstructionsNo instructions recorded. Reason for Referral None Reported. Results Created Date Observation Date Name Description Value Unit Range Abnormal Flag Note LastModifiedBy Organization Detail LastModifiedTime 01/03/2001/02/2025 rapid SARS CoV 2 Ag, QL IA, respi rator y speci men rapid SARS CoV 2 Ag, QL IA, respiratory specimen negati ve Not Available [address], [phone] 01/02/2025 13:39:16 01/03/2001/02/2025 rapid flu (A+B) Flu negati ve Not Available [address], [phone] 01/02/2025 13:39:15 Result Notes None recorded. Medical Equipment None Reported. Allergies Allergen ID Allergen Name Allergen Category Reaction Reaction Severity Criticality Documentation Date Start Date Code Code System Note Provider Name and Address Organization Details Recorded Time 19563 lactulose medicatio n Not available Not available Not available 01/02/2025 6218 RxNorm Not Available pallavi - External Data Service - prod 13:14:32 2733 Product containin g penicilli n (product) medicatio n Not available Not available Not available 09/09/2022 71152 8001 SNOMED Not Available [facility] - production 4 03:46:21 2734 aspirin medicatio n Not available Not available Not available 09/09/2022 1191 Rx[facility] Available [facility] 03:46[facility]21 Medications Name Sig Start Date Stop Date Status Note LastModified by Organization Details LastModified Time comfrt touch alc prep pad active Not Available Not Available Not Available comfrt touch pad alc prep active Not Available Not Available Not Available comfrt touch pad alc prep eaches USE DIRECTED TO CLEAN ARE PRIOR TO TESTING BLOOD SUGAR active Not Available Not Available No t Available cyclobenzap rine 10 mg tablet active Not Available Not Available Not Available ziprasidone 80 mg capsule TAKE ONE (1) CAPSULE BY MOUTH TWICE A DAY active Not Available Not Available No t Available pioglitazon e 15 mg tablet TAKE 1 TABLET BY MOUTH EVERY DAY active Not Available Not Available No t Available methocarbam ol 500 mg tablet TAKE 1-2 TABLET BY MOUTH 3 TIMES A DAY,X7 DAYS,PRNS PASM active Not Available Not Available No t Available metformin 500 mg tablet TAKE 2 TABLETS BY MOUTH 2 TIMES A DAY BEFORE BREAKFAST AND DINNER active Not Available Not Available No t Available Vitamin B-2 100 mg tablet TAKE 1 TABLET BY MOUTH DAILY IN AM active Not Available Not Available No t Available oxcarbazepi ne 150 mg tablet TAKE 1 TABLET BY MOUTH 3 TIMES A DAY TAKE WITH 600 MG TABLET FOR TOTAL DOSE OF 750 MG THREE TIMES DAILY active Not Available Not Available No t Available acetaminoph en 325 mg tablet TAKE 2 TABLETS BY MOUTH EVERY FOUR HOURS NEEDED FOR PAIN active Not Available Not Available No t Available doxycycline hyclate 100 mg capsule TAKE 1 CAPSULE BY MOUTH TWICE DAILY FOR SINUS INFECTION active Not Available Not Available No t Available benztropine 0.5 mg tablet TAKE ONE (1) TABLET BY MOUTH TWICE A DAY active Not Available Not Available No t Available cefpodoxime 100 mg tablet active Not Available Not Available Not Available pravastatin 40 mg tablet active Not Available Not Available Not Available ibuprofen 800 mg tablet active Not Available Not Available Not Available levetiracet am 500 mg tablet TAKE 3 TABLETS BY MOUTH 2 TIMES A DAY active Not Available Not Available No t Available senna 8.6 mg tablet active Not Available Not Available No t Available sumatriptan 25 mg tablet active Not Available Not Available Not Available ondansetron HCl 4 mg tablet active Not Available Not Available Not Available famotidine 40 mg tablet active Not Available Not Available Not Available Milk of Magnesia 400 mg/5 mL oral suspension active Not Available Not Available N ot Available clindamycin HCl 150 mg capsule 09/23 completed Not Available Not Available Not Available oxcarbazepi ne 300 mg tablet active Not Available Not Available Not Available acetaminoph en 300 mg-codeine 30 mg tablet active Not Available Not Available Not Available clopidogrel 75 mg tablet TAKE 1 TABLET BY MOUTH EVERY DAY active Not Available Not Available No t Available sulfamethox azole 800 mg-trimetho prim 160 mg tablet active Not Available Not Available Not Available tramadol 50 mg tablet TAKE 1 TABLET BY MOUTH THREE TIMES DAILY NEEDED FOR MODERATE TO SEVERE PAIN active Not Available Not Available No t Available ketorolac 30 mg/mL (1 mL) injection solution Inject 30 mg by intramusc ular route. 2021 active Not Available Not Available Not Avai lable famotidine 20 mg tablet active Not Available Not Available Not Available pravastatin 80 mg tablet TAKE 1 TABLET BY MOUTH DAILY AT BEDTIME active Not Available Not Available No t Available prednisolon e acetate 1 % eye drops,suspe nsion active Not Available Not Available Not Available Ear Wax Removal Kit 6.5 % drops active Not Available Not Available Not Available meclizine 25 mg tablet Take 1 tablet 3 times a day by oral route as needed, for Vertigo. 2024 active Not Available Not Available Not Avai lable amlodipine 10 mg tablet TAKE 1 TABLET BY MOUTH DAILY active Not Available Not Available No t Available pantoprazol e 40 mg tablet,cait yed release Take 1 tablet every day by oral route. active Not Available Not Available No t Available erythromyci n 5 mg/gram (0.5 %) eye ointment active Not Available Not Available Not Available tobramycin 0.3 % eye drops INSTILL 1 DROP INTO left eye BY OPHTHALMI C ROUTE 4x per day x 7 days active Not Available Not Available No t Available dexamethaso ne 4 mg tablet Take 1 tablet every day by oral route in the morning for 5 days. active Not Available Not Available No t Available prednisone 50 mg tablet Take 1 tablet every day by oral route in the morning for 4 days. active Not Available Not Available No t Available perphenazin e 4 mg tablet TAKE ONE (1) TABLET BY MOUTH TWICE A DAY active Not Available Not Available No t Available metoprolol tartrate 50 mg tablet active Not Available Not Available No t Available gabapentin 300 mg capsule TAKE 1 CAPSULE BY MOUTH 3 TIMES A DAY active Not Available Not Available No t Available oxcarbazepi ne 600 mg tablet TAKE 1 TABLET BY MOUTH 3 TIMES A DAY IN ADDITION TO THE 150MG TABS FOR A TOTAL OF 750MG 3 TIMES PER DAY. active Not Available Not Available No t Available hydroxyzine HCl 25 mg tablet active Not Available Not Available Not Available pravastatin 20 mg tablet active Not Available Not Available Not Available loteprednol etabonate 0.5 % eye drops,suspe nsion active Not Available Not Available Not Available cefuroxime axetil 500 mg tablet Take 1 tablet every 12 hours by oral route, for 7 days. active Not Available Not Available No t Available polyethylen e glycol 3350 17 gram/dose oral powder active Not Available Not Available Not Available levofloxaci n 750 mg tablet active Not Available Not Available Not Available methylpredn isolone 4 mg tablets in a dose pack active Not Available Not Available Not Available albuterol sulfate HFA 90 mcg/actuati on aerosol inhaler INHALE 2 PUFFS INTO LUNGS EVERY 6 HOURS NEEDED FOR WHEEZING/ SHORTNESS OF BREATH active Not Available Not Available No t Available ondansetron 4 mg disintegrat ing tablet Place 1 tablet every 6 hours by transling ual route as needed, for nausea. active Not Available Not Available No t Available fluticasone propionate 50 mcg/actuati on nasal spray,suspe nsion active Not Available Not Available Not Available dicyclomine 10 mg capsule active Not Available Not Available Not Available loratadine 10 mg tablet TAKE 1 TABLET BY MOUTH EVERY DAY NEEDED active Not Available Not Available No t Available amoxicillin 875 mg-potassiu m clavulanate 125 mg tablet active Not Available Not Available Not Available oxycodone 5 mg tablet active Not Available Not Available No t Available metoprolol tartrate 25 mg tablet TAKE 1 TABLET BY MOUTH 2 TIMES A DAY active Not Available Not Available No t Available peg 3350-electr olytes 236 gram-22.74 gram-6.74 gram-5.86 gram solution active Not Available Not Available Not Available FreeStyle Lite Meter kit DIRECTED active Not Available Not Available No t Available FreeStyle Lite Strips FOR TESTING ONCE DAILY active Not Available Not Available No t Available lacosamide 100 mg tablet active Not Available Not Available Not Available Lubricant Eye (PG-PEG 400) 0.4 %-0.3 % drops INSTILL 1 DROP EACH EYE FOUR TIMES DAILY active Not Available Not Available No t Available Linzess 145 mcg capsule active Not Available Not Available Not Available TRUEplus Glucose 3.75 gram chewable tablet active Not Available Not Available Not Available Rybelsus 7 mg tablet active Not Available Not Available No t Available Rybelsus 3 mg tablet active Not Available Not Available No t Available Pure Comfort Safety Lancets 30 gauge USE TO CHECK SUGARS ONCE DAILY -; DX- E11.9 active Not Available Not Available No t Available Tab-A-Leodan 400 mcg tablet TAKE 1 TABLET BY MOUTH DAILY active Not Available Not Available No t Available Vitals Date Recorded Heart rate Oxygen saturation Respiratory rate Body height Body temperature Body weight Systolic And Diastolic Provider Name and Address Organization Details Last Updated DateTime 5 87 /min 97 % 18 /min 162.56 cm 97.8 [degF] 027628. 16 g 138/72 mm[Hg] Not Available [facility] - production 5 20:55:20 Social History None recorded. Functional Status None recorded. Mental Status None recorded. Family History Nothing Reported. Medical History No medical history recorded. Past Encounters Encounter ID Performer Location Encounter Start Date Encounter Closed Date Diagnosis/Indication Diagnosis SNOMED-CT Code Diagnosis ICD10 Code Diagnosis IMO Codes Diagnosis Note [id number] [facility] [address] [address] 01/02/2025 13:13:26 01/04/2025 14:48:02 Xerostomia 76059667 R68.2 8024 Cough 11909711 R05.9 [id number] [facility] [address] [address] 01/11/2025 20:53:23 01/12/2025 16:05:47 Abdominal pain 52404172 R10.9 [id number] Evaluation in the field was performed by my astrobiologist colleague, as noted above, I provided real-time direction and supervisio n for this visit. The evaluation revealed 59-year-ol d male with history of COPD/asthm a, hypertensi on, severe persistent mental illness (SPMI), epilepsy/s eizure disorder, and type 2 diabetes mellitus presenting with abdominal pain, nausea, and vomiting for 1 week.He reports being evaluated twice at [facility] for the same complaints and was told he had an ulcer and viral infection. He was discharged home on [place] and advised to maintain a clear liquid diet.Since discharge, he has had no bowel movement for over 7 days and is not passing flatus.He reports being able to drink small amounts of broth but vomits with any solid intake. He has not taken his seizure or psychiatri c medication s for 1 week and reports hearing voices.Den ies chest pain, shortness of breath, fever, or chills. Vitals : BP: 138/72, Pulse: 87 , RR: 18 , Temp: 97.8 F, SpO2: 97% on room airExam: Gen: Awake, alert, appears uncomforta bleLungs: Clear to auscultati on bilaterall yCardiac: Regular rate and rhythmAbdo men: Firm, distended, diffusely tender, worse at midline; bowel sounds quietExtre mities: No edemaAller gies reviewed. Impression :Abdominal distention and tenderness with nausea/vom iting and no bowel movement >7 days, concerning for bowel obstructio n (SBO or ileus) vs gastric outlet obstructio n or severe constipati on.Medicat ion non-adhere nce has missed seizure and psychiatri c medication s for 1 week, now with auditory hallucinat ions, placing him at risk for seizure recurrence and psychiatri c decompensa tion.Unabl e to tolerate oral intake risk for dehydratio n and metabolic derangemen t. Plan:Aure rning findings for bowel obstructio n given firm, distended abdomen, vomiting, and obstipatio n.Needs imaging (CT abdomen/pe lvis), IV fluids, electrolyt es, and possible NG tube decompress ion.Has not taken antiepilep tic or psychiatri c medication s for 1 week; at risk for seizure or psychiatri c crisis.Shilpi ble to tolerate PO intake and may require admission for stabilizat ion.Transf er to ED for urgent evaluation and management . An expect was called at [facility] . Primary care, consider__ _ Dispositio n:We discussed the situation and I recommende d referral to the emergency department . Health Concerns Section Related Observation LastModified by Organization Detai ls LastModified Time None Recorded Concern Status LastModified by Organization Details LastModified Time None Recorded Payers Encounter Date Sequence Insurance Name Policy Number Policy Kelly Covered Member ID Kelly Member ID Guarantor Name 01/11/2025 1 [facility] - DOS ON OR AFTER 2022 - DUAL ELIGIBLE - PENITENTIARY OPTIONS AND ONE CARE (MEDICARE REPLACEMENT/AD VANTAGE - HMO) Brant Murphycamdenjarrod [id number] Brant Richard Hernandez Notes Date Note Type Note Provider Name and Address Organization Details Recorded Time 01/11/2025 text/html ROS as noted in the HPI [facility] Nurse Triage Notes (Misti Nolen): Reason For Request: Patient just got home from the ER, and now his Stomach hurts. Patient Reports: Vague abdominal pain greater than 24 hours; Constipation; Nausea with or without vomiting; Inability to tolerate foods, fluids or daily medications Denies: Sharp focal or diffuse abdominal pain Vomiting blood/coffee ground material Bloating, jaundice new onset with pain Nausea and vomiting greater than 2 hours with abdominal pain Tearing pain that radiates to back Food Impaction Diarrhea no blood in stool Chief Complaints: Abdominal Pain PMH: COPD/Asthma, Hypertension, Severe Persistent Mental Illness (SPMI), Epilepsy/Seizure Disorder, Diabetes Mellitus Type 2, Asthma PMH Reviewed at 01/11/2025 - 20:24 Allergies Reviewed at 01/11/2025 - 20:24 Comments: 59 y.o male complains of Abdominal Pain Self-referring. Recent admission to hospital from Tuesday until this yesterday. Reports that they put him on a liquid diet while in the hospital. Did not discharge him with any medications. Voiding adequately. Reports that they did a scan of his abdomen and head/neck - all WNL. Unsure of why they did the scan of his head/neck. Poor PO intake - vomiting food after eating it, only able to tolerate liquids. Voiding adequately. Was discharged this afternoon but unsure why because still w/ abdominal pain and nausea. Took PRN tylenol for pain - 2 hrs ago. On anticoagulation - unsure of name. Denies kidney issues. Last seizure 2 weeks ago - reports that he has breakthrough seizures on occasion. Poor historian - difficult triage. I provided information on the mobile health provider response time and advised the patient and/or caregiver to monitor reported signs and symptoms. I discussed the warning signs of when to seek emergency care. ..................... ..................... ..................... ..................... ..................... ..................... ............... Production Hardener Note From Philip Wilson: [place], the home of a 60-year-old male complaining of abdominal pain. Patient has not had a bowel movement in seven days, and was released from the hospital today. Patient reports 10 out of 10 pain and generalized tenderness in the whole abdominal area. Patient is AO times three, patient has not been able to keep down any of his psychiatric medication and is now hearing voices. The patient s pulse is strong and regular with no edema and no swelling in the lower extremities. Patient is breathing well and his lungs sound clear. Patient s abdomen is distended and hard and painful on palp throughout. Patient also reports not being able to fluctuate. Patient has only been able to drink broth and vomit when he tries eating anything solid. At this visit, the patient s vitals were taken, an assessment was made. [facility] was contacted and given the assessment recommended going to the hospital right away. 911 was called. Handoff was made to local EMS. ..................... ..................... ..................... ..................... ..................... ..................... ............... [facility] Consulted: Alessio Massey ..................... ..................... ..................... ..................... ..................... ..................... ............... Disposition: Adolfo MASSEY MD [address] [place] [address],[address] [facility], [place], [phone], HILDA - GrabilitySANA HYMAN 01/11/2025 21:38:52
--- OUTSIDE RECORDS SUMMARY | 2025-02-09 17:41 | XMS_ITS | Data Portability ---
Author Organization [place] - [facility] Address [address] [place] [id number] Care Team Providers Care Sports Marketing Specialist Name Role Phone ODILIA BADILLO Primary Care Provider Assessment Encounter Date Assessment Date Assessment LastModified by Organization Details LastModified Time 08/13/2021 08/13/2021 Proper Personal Protective Equipment (PPE), including gloves, eye protection and masks were donned and doffed appropriately and all equipment cleaned using approved technique with germicidal disposable wipes prior to and after care of this patient according to [facility]'s infection prevention protocols. Overview/History : 55 yo male with complaint of right hand pain without trauma. His triage notes reported diarrhea but he denied and diarrhea multiple times. Exam: LEFT HAND: wnl RIGHT HAND/UPPER EXTREMITY: no observed or palpable deformity. Protnation/supin ation of the RUE intact. No sunffbox tenderness. Wrist with FROM, fingers with FROM. Cap refil <2sec. Radial pulse intact. No erythema edema lesions or ecchymosis. Flex/ext 5/5 str, handgrip 5/5 str. DDx considered, but not limited to: fx strain/sprain Plan/Discussion: -no trauma -no phyiscal exam findings -right hand strong and neurovasc intact without physical findings -if pain continues, pt or mother will call for re-eval -if pain worsens, immobility starts, fevers chills or redness starts they will seek emergent re-eval Not available 08/13/2021 14:04:54 12/19/2021 12/19/2021 Overview/History : 56 YO M new to provider but known to He has a hx of sz disorder and DM. Checks sugars at home. They have been stable. Starting yesterday it seems there was reports of slurred speech, worsening blurry vision, worsening gait instability (feels he has very hard time getting around now), diffuse headache that is severe and is not relieves w/ Tylenol, and left arm weakness and pain which he describes as shock like (? numbness). The patient is a poor historian and he FaceTimes his mother who did not add much to the above info except that he apparently went to [facility] ED last evening. She reports he was told he had a mini stroke . Yet he still has sxs and he reports they seem to be getting worse. He also reports he got a needle put at him at [facility] and then something about being told to go home because it was 'too busy' . Unclear if he left himself or if he was actually seen and evaluated. He doesn't have any dc paperwork for me to review which makes me believe he was never seen. Patient does have some social issues, has VNA and SEAL MIXING OPERATOR help all throughout the week. He also has a therapy dog that is being trained to help w/ his szs. He reports no sz x 3+ months. Otherwise there is no fever, chills, abd pain, NVD, trauma, falls, chest pain, SOB. Exam: Vitals: VSS and afebrile Constitutional: 56 yo male sitting upright, comfortable, NAD, and not toxic appearing. Eyes: PERRL at 4mm, EOM's intact, No swelling, no discharge, sclera / conjunctiva clear ENT: no nasal discharge, no erythema/ exudate noted in oropharynx, uvula midline, moist mucous membranes CV: RRR, no rubs/ murmurs/ gallops heard, 2+ radial pulses bilaterally, no edema and no calf tenderness, 2+ DP/ PT pulses bilaterally Pulm: breath sounds clear and equal bilaterally, no wheeze/ rhonchi or rales on auscultation. Speaks in full sentences, no increased work of breathing. GI: obese, Soft, non-tender to palpation. No masses, normal bowel sounds. : No CVA tenderness bilaterally. No suprapubic tenderness. MS: very unsteady gair and LUE weakness and decreased ROM noted, no swelling and no s/s of any trauma, no evidence of trauma Neuro: LUE weakness and decreased ROM, possible mild L side facial droop, thick speech, ataxic gait all noted!, BLE equal strength and reflexes Skin: No rash, visible skin appears cdi DDx considered, but not limited to: CVA - too many Injury - no trauma, no focal pain (reports pain may be shocklike and or neurpathic as well), doubt injury as cause of sxs to [facility] - on sz meds, no sz x > 3 months, he is A&O and awake and is not post-ictal, doubt sz Work up/Results: Feel pt needs stat ED referral for stroke like sxs and inability to care for self in home Plan/Discussion: Left Hemiparesis: -Pt seems to have left hemiparesis and other sxs concerning for CVA at this time -Unable to move left arm, ? neuropathic pain vs numbness in arm as well, mild left facial droop, slurred speech, worsening gait instability and blurry vision as well over last couple of days. -We attempted to check pt blood sugar w/ his at home POC but when he stood to reach it he dropped it and nearly stumbled to the ground and me and my partner had to lower him into a chair -Concern for safety as he does live alone -Enough sxs and pt is poor historian so needs stroke rule out -Unsure if he was even evaluated last night at [facility] ED...doesn't sound like he truly was -Spoke w/ mother over phone per pt request who added that he started w/ sxs yesterday. He reports they have bene getting worse as well -He is agreeable to go to ED and he has called his SEAL MIXING OPERATOR to come and help take care of his new puppy while he is away. He reports dog was ate and watered this am, I offered to give dog some water and food now but pt refused as he is concerned that dog will make a mess. -Handoff to [facility] -Expect called to [facility] who agrees pt needs ED evaluation and they will be receiving him promptly when he arrives Pt is on agreement and verbalizes understanding with the above plans at this time. Pt has no other questions or concerns at this time. All questiosn are answered to the best of my ability. Pt thanks us for our visit today. In order to obtain further information and compare any laboratory results/values, I have accessed . This information was pertinent in my medical decision making today. [email or web address] Not available 12/19/2021 11:15:27 Plan of Treatment Reminders Order Date Submit Date Provider Last Modified By Organization Details Last Modified Time Details Appointments None record ed. Lab None record ed. Referral None record ed. Procedures None record ed. Surgeries None record ed. Imaging None record ed. Medication Orders None record ed. Patient TargetsNo targets recorded. Patient Instructions Encounter Date Encounter Id Patient Instructions Last Modified By Organization Details Last Modified Time 08/13/2021 [id number] Acute Nausea and Vomiting/Diarrhea BASIC INFORMATION Acute nausea and vomiting often start suddenly, worsen quickly, and last a few hours to 24 hours. Nausea and vomiting most often occur together, although they can occur alone. Cases of acute nausea and vomiting are often from gastrointestinal viruses such as norovirus, rotavirus and influenza. Less often it can be caused by toxins released from food that g oes bad as well as some types of bacteria and parasites. Diarrhea can also occur. Your nurse practitioner will conduct a careful history to help determine if you have one of the more serious causes. The cause of your nausea and vomiting may be unknown. INSTRUCTIONS Medicines: 1) Anti-nausea: You may have been given a prescription for an anti nausea medicine such as Zofran, Phenergan or Compazine. These can be used every 6-8 hours to help prevent nausea and vomiting. They can make you sleepy, so do not drive after taking them. Be sure to read all of the drug information from the pharmacy. 2) Tylenol: Low grade fever is common with acute nausea and vomiting. You may use Tylenol, per the recommended dosing on the label, to help control fever. If you have liver disease, do not use Tylenol. Ask your OUTDOOR STUDIES DIRECTOR how to address fever if you are concerned about Tylenol use. 3) Anti-diarrheal medicines: These are available [id number], but in some cases are not recommended and can even worsen some cases of intestinal problems. Ask your OUTDOOR STUDIES DIRECTOR if you should use them. In children under 12, the only anti-diarrheal that should be considered is Kaopectate. Diet: 1) For the next 12-24 hours, take clear liquids only. No dairy and no caffeinated beverages. After you have not vomited for a complete hour (either with or without the help of the anti-nausea medicine), begin by taking one tablespoon of clear liquid every 15 minutes for one hour. If you are able to tolerate this, you may increase the amount to 2 tablespoons every hour for the next 2 hours. 2) Clear liquids such as gatorade, pedialyte or broth are recommended because of the electrolytes and sugars that will help replenish the losses from vomiting and diarrhea. 3) If you are able to tolerate clear liquids as instructed above, you may begin to take a bland diet. Plain pasta/noodles or toast are suggestions. If you have had diarrhea, bananas, rice and applesauce are suggested as these can help make the stools more solid. Avoid greasy, fatty or fried foods FOLLOW UP You should make an appointment to see your primary care provider within 24 hours or sooner for worsening condition as described below. If you do not have a primary care doctor, you should follow up with one of the PCP suggestions from [facility]. SEEK CARE IMMEDIATELY IF: 1) You are still unable to tolerate any oral intake after 24 hours 2) You have blood in your vomit or stool 3) You develop severe abdominal pain that does not go away after an episode of vomiting or diarrhea 4) You have severe dizziness, heart palpitations or are passing out 5) You develop severe muscle cramps or weakness 6) You have not made urine in over 24 hours If you develop any new or worsening symptoms and need after hours care, please go to nearest ER and/or call 911. If you have additional concerns or develop a change in your condition between 8am-10pm, please call [facility] at [phone] to help navigate your care. Thank you for your visit with [facility] today. You were seen today for abdominal pain, nausea, vomiting and/or diarrhea. Medications may have been administered and lab tests may have been performed. At this time, we do not see evidence of a serious surgical or infectious cause of your symptoms. However, lab tests and an evaluation cannot always exclude appendicitis or other serious causes of abdominal pain. Please see a medical professional in 12-24 hours to be re-examined. Seek immediate medical attention for increased pain, vomiting or fever. If you develop any new or worsening symptoms and need after hours care, please go to nearest ER and/or call 911. If you have additional concerns or develop a change in your condition between 8am-10pm, please call [facility] at [phone] to help navigate your care. Thank you for your visit with [facility] today. We cannot always find the exact cause of your symptoms during your initial visit. Please follow up with your primary care provider or specialist to be rechecked or seek medical attention if your symptoms do not go away or get worse. If you develop any new or worsening symptoms and need after hours care, please go to nearest ER and/or call 911. If you have additional concerns or develop a change in your condition between 8am-10pm, please call [facility] at [phone] to help navigate your care. Thank you for your visit with [facility] today. You do not appear to have a fracture or dislocation that requires immediate surgical intervention. However, small breaks or ligament tears may not be obvious on initial examination. Given this concern, we may have placed you in a temporary splint. If an xray is indicated, we will help direct you to the best option to obtain your imaging study. We have also given you follow up directions. Please follow up with your primary care physician or specialist as directed. If you develop any new or worsening symptoms and need after hours care, please go to nearest ER and/or call 911. If you have additional concerns or develop a change in your condition between 8am-10pm, please call [facility] at [phone] to help navigate your care. [email or web address] Not available 08/13/2021 13:40:57 Reason for Referral None Reported. Medical Equipment None Reported. Allergies Allergen ID Allergen Name Allergen Category Reaction Reaction Severity Criticality Documentation Date Start Date Code Code System Note Provider Name and Address Organization Details Recorded Time 060674 aspirin medicatio n Not available Not available Not available 08/13/2021 1191 RxNorm MEÑO Cordova [address] [place], [address], [place] [facility] 13:35:58 589048 Product containin g penicilli n (product) medicatio n Not available Not available Not available 08/13/2021 19947 8001 SNOMED MEÑO Cordova [address] [place], [address], [place] [facility] 13:36:06 908380 lactulose medicatio n Not available Not available Not available 12/19/2021 6218 RxNorm MEÑO Iriz[address]ry [address] [facility] [place], [address] , [place] - [facility] 09:45:27 Medications Name Sig Start Date Stop Date Status Note LastModified by Organization Details LastModified Time comfrt touch pad alc prep active Not Available Not Available Not Available comfrt touch pad alc prep eaches USE DIRECTED TO CLEAN ARE PRIOR TO TESTING BLOOD SUGAR active Not Available Not Available No t Available ziprasidone 80 mg capsule TAKE ONE [...] 1 TABLET BY MOUTH THREE TIMES DAILY active Not Available Not Available No t Available acetaminoph en 325 mg tablet TAKE 2 TABLETS BY MOUTH EVERY FOUR HOURS NEEDED FOR PAIN active Not Available Not Available No t Available doxycycline hyclate 100 mg capsule TAKE 1 CAPSULE BY MOUTH 2 TIMES A DAY,X10 DAYS 12/19 completed Not Available Not Available Not Available benztropine 0.5 mg tablet TAKE ONE (1) TABLET BY MOUTH TWICE A DAY active Not Available Not Available No t Available levetiracet am 500 mg tablet TAKE 3 TABLETS BY MOUTH 2 TIMES A DAY active Not Available Not Available No t Available clopidogrel 75 mg tablet TAKE 1 TABLET BY MOUTH EVERY DAY active Not Available Not Available No t Available tramadol 50 mg tablet TAKE 1 TABLET BY MOUTH THREE TIMES DAILY NEEDED FOR MODERATE TO SEVERE PAIN active Not Available Not Available No t Available pravastatin 80 mg tablet TAKE 1 TABLET BY MOUTH DAILY AT BEDTIME active Not Available Not Available No t Available amlodipine 10 mg tablet TAKE 1 TABLET BY MOUTH DAILY active Not Available Not Available No t Available pantoprazol e 40 mg tablet,cait yed release TAKE 1 TABLET BY MOUTH DAILY active [...] 1 TABLET BY MOUTH THREE TIMES DAILY active Not Available Not [...] Available ondansetron 4 mg disintegrat ing tablet TAKE 1 TABLET BY MOUTH THREE TIMES DAILY active Not Available Not Available No t Available loratadine 10 mg tablet TAKE 1 TABLET BY MOUTH EVERY DAY NEEDED active Not Available Not Available No t Available oxycodone 5 mg tablet active Not Available Not Available No t Available neomycin 3.5 mg/g-polymy keon B 10,000 unit/g-dexa meth 0.1 % eye oint 12/19 completed Not Available Not Available Not Available metoprolol tartrate 25 mg tablet TAKE 1 TABLET BY MOUTH 2 TIMES A DAY active Not Available Not Available No t Available FreeStyle Lite Meter kit DIRECTED active Not Available Not Available No t Available FreeStyle Lite Strips FOR TESTING ONCE DAILY active Not Available Not Available No t Available Refresh P.M. 57.3 %-42.5 % eye ointment active Not Available Not Available Not Available Lubricant Eye (PG-PEG 400) 0.4 %-0.3 % drops INSTILL 1 DROP EACH EYE FOUR TIMES DAILY active Not Available Not Available No t Available Artificial Tears (petrolatum /mineral oil) 83 %-15 % eye ointment active Not Available Not Available Not Available Rybelsus 7 mg tablet active Not Available Not Available No t Available Rybelsus 3 mg tablet active Not Available Not Available No t Available Pure Comfort Safety Lancets 30 gauge USE TO CHECK SUGARS ONCE DAILY. active Not Available Not Available No t Available Tab-A-Leodan 400 mcg tablet TAKE 1 TABLET BY MOUTH DAILY active Not Available Not Available No t Available Vitals Date Recorded Respiratory rate Oxygen saturation Heart rate Systolic And Diastolic Provider Name and Address Organization Details Last Updated DateTime 08/13/2021 16 /min 94 % 74 /min 132/78 mm[Hg] Not Available [facility] 2 13:46:18 Date Recorded Heart rate Respiratory rate Body temperature Oxygen saturation Systolic And Diastolic Provider Name and Address Organization Details Last Updated DateTime 2 89 /min 20 /min 97.3 [degF] 95 % 122/74 mm[Hg] Not Available [facility] 2 10:07:40 Social History None recorded. Functional Status Question Answer Note LastModified by Organizat ion Details LastModified Time Do you use any illicit or recreational drugs? No Information not available 12/19/2021 What is your level of alcohol consumption? None Information not available 12/19/2021 Mental Status None recorded. Family History Relationship Description Onset Age of this Age Resolved Age Notes LastModified by Organization Details LastModified Time Brother Heart failure [email or web address] Not available 2021 10:05:03 Brother Diabetes mellitus [employer]umplik Not available 2021 10:05:09 Medical History Condition Response Coronary Artery Disease N COPD N Depression N Hypothyroidism N A-fib N Cancer N Stroke N High Cholesterol N Rheumatoid Arthritis N Kidney Disease N Parkinson's Disease N Diabetes Y CHF N Dementia N Asthma N Pulmonary Embolism N Hypertension Y Osteoporosis N Past Encounters Encounter ID Performer Location Encounter Start Date Encounter Closed Date Diagnosis/Indication Diagnosis SNOMED-CT Code Diagnosis ICD10 Code Diagnosis IMO Codes Diagnosis Note [id number] ME[facility]O [facility] [address] [place] [address] 08/13/2021 13:34:19 08/19/2021 13:12:08 Pain of right hand 5523605409 06988 M79.641 [id number] MEÑO Mcdaniels [facility] [address] [place] [address] 12/19/2021 09:42:08 12/21/2021 13:10:58 Left hemiparesis 893678010 G81.90 Health Concerns Section Related Observation LastModified by Organization Detai ls LastModified Time None Recorded Concern Status LastModified by Organization Details LastModified Time None Recorded Advance Directives Directive None Recorded Payers Insurance Date Sequence Insurance Name Policy Number Policy Kelly Covered Member ID Kelly Member ID Guarantor Name 10/14/[address] [facility] - DOS ON OR AFTER 2022 - MEDICARE [place]VANTAGE [place]MED[place]ARE RE[place]ACEMENT/AD VANTAGE - PPO) Brant Ng [id number] Brant Katherinetanna 10/14/2022 2 [place] Brant Murphytanna [id number] Brant Ng 12/18/2021 2 [facility] - DOS PRIOR TO 2022 - DUAL ELIGIBLE (MEDICARE REPLACEMENT/AD VANTAGE - HMO) Brant Ng [id number] Brant Ng 10/14/2022 1 [facility] - DOS PRIOR TO 2022 - DUAL ELIGIBLE (MEDICARE REPLACEMENT/AD VANTAGE - HMO) Brant Ng [id number] Brant Ng 12/21/2021 1 [place]: [facility] Brant Ng [id number] Brant Katherinetanna 12/18/[address] [facility] - DOS PRIOR TO 2022 - DUAL ELIGIBLE (MEDICARE REPLACEMENT/AD VANTAGE - HMO) Brant Ng [id number] Brant Katherinetanna 08/12/2021 1 *SELF PAY* Brant Ng [id number] Brant Ng Notes Date Note Type Note Provider Name and Address Organization Details Recorded Time 08/13/2021 text/html General HPI Template - DHReported by Patient 55 yo male new to provider and to [facility] asked why we are here he reports pain in the right handwhen asked about diarrhea he states thats not an issueI ask again what we can do to help today and he reports:pain in the right handpt using hand freely to remove insurance cards from his wallethe also bears weight through both hands to stand up on walkerhe reports his hand had been hurting for a couple days he denies any traumano rashno rednessno injuriesno past injuries in the same area// MEÑO Cordova, [place], [address], [place] - [facility] 08/13/2021 14:05:02 12/19/2021 text/html 56 YO M new to provider but known to [facility] has a hx of sz disorder and DM. Checks sugars at home. They have been stable.Starting yesterday it seems there was reports of slurred speech, worsening blurry vision, worsening gait instability (feels he has very hard time getting around now), diffuse headache that is severe and is not relieves w/ Tylenol, and left arm weakness and pain which he describes as shock like (? numbness). The patient is a poor historian and he FaceTimes his mother who did not add much to the above info except that he apparently went to [facility] ED last evening. She reports he was told he had a mini stroke . Yet he still has sxs and he reports they seem to be getting worse. He also reports he got a needle put at him at [facility] and then something about being told to go home because it was 'too busy' . Unclear if he left himself or if he was actually seen and evaluated. He doesn't have any dc paperwork for me to review which makes me believe he was never seen. Patient does have some social issues, has VNA and SEAL MIXING OPERATOR help all throughout the week. He also has a therapy dog that is being trained to help w/ his szs. He reports no sz x 3+ months.Otherwise there is no fever, chills, abd pain, NVD, trauma, falls, chest pain, SOB. MEÑO Hernandez [address], [place], [address], [place] - [facility] 12/19/2021 11:15:38
--- OUTSIDE RECORDS SUMMARY | 2025-02-09 17:41 | XMS_ITS | Continuity of Care Document ---
Author Organization [employer] [facility], [facility] Address [address] [place] [address] Care Team Providers Care Hr Assistant Name Role Phone HIM CCA OTHER ODILIA BADILLO Primary Care Provider Assessment Encounter Date Assessment Date Assessment LastModified by Organization Details LastModified Time 01/02/2025 01/02/2025 I have reviewed and agree with the assessment and plan as documented by the senior credit officer. I provided real time medical direction for this encounter and was immediately available to provide additional phone based assistance as needed. History as noted by senior credit officer. Impression: Pt with history as noted, reporting 1 week of dry mouth, which his predominant complaint today. He denies any new medications or dosage changes prior to these symptoms. Pt also reporting multiple other complaints since yesterday including a cough, SOB, constant anterior CP, SOB, CHATMAN, dizziness, intermittent nausea and loose stool. As noted, pt evaluated yesterday in the [facility] ED yesterday and had a negative workup up, although his CXR revealed atelectasis vs opacity. Pneumonia unlikely given that he had no leukocytosis, is afebrile with normal O2 sat, and has a normal lung exam. Today, pt appears well with normal vitals and normal exams of his lungs and mouth. Rapid Covid and flu today are also negative. Pt's med list reviewed. He is on multiple meds (psychotropic and AEDs) that could cause dry mouth. His vitals and exam today is reassuring. His oral mucus membranes appear moist at this time (per medic). Pt is instructed to contact his primary care team to discuss his dry mouth. He is told that they need to review his medications to determine if any of his med doses could be adjusted to improve the dry mouth. To primary care team: Please call and follow up with pt in the next 1-2 days to discuss his symptoms and further management. Pt instructed to seek medical attention right away in the ED with any worsening or new symptoms, which are reviewed with him. On 01/02/25, the [facility] platform system was down. As part of this downtime, any encounter that took place on 01/02/25 did not have the Mobile Health Provider clinical information, including vital signs and point of care data, incorporated into the C note. [email or web address] Not available 01/04/2025 14:46:09 Plan of Treatment Reminders Order Date Submit Date Provider Last Modified By Organization Details Last Modified Time Details Appointments None recorded. Lab rapid flu (A+B) 2024 [facility], [address] [place] [address], [id number] 13:39:40 rapid SARS CoV 2 Ag, QL IA, respiratory specimen [address], [phone] 13:39:40 Referral None recorded. Procedures None recorded. Surgeries None recorded. Imaging None recorded. Medication Orders None recorded. Patient TargetsNo targets recorded. Patient InstructionsNo instructions recorded. Reason for Referral None Reported. Results Created Date Observation Date Name Description Value Unit Range Abnormal Flag Note LastModifiedBy Organization Detail LastModifiedTime 01/03/2001/02/2025 rapid SARS CoV 2 Ag, QL IA, respi rator y speci men rapid SARS CoV 2 Ag, QL IA, respiratory specimen negati ve Not Available [address], [phone] 01/02/2025 13:39:16 01/03/2001/02/2025 rapid flu (A+B) Flu negati ve Not Available [address], [phone] 01/02/2025 13:39:15 Result Notes None recorded. Medical Equipment None Reported. Allergies Allergen ID Allergen Name Allergen Category Reaction Reaction Severity Criticality Documentation Date Start Date Code Code System Note Provider Name and Address Organization Details Recorded Time 57248 lactulose medicatio n Not available Not available Not available 01/02/2025 6218 RxNorm Not Available [facility] - External Data Service - prod 10/29/202 5 13:14:32 2733 Product containin g penicilli n (product) medicatio n Not available Not available Not available 09/09/2022 99005 8001 SNOMED Not Available [facility] 4 03:46:21 2734 aspirin medicatio n Not available Not available Not available 09/09/2022 1191 RxNorm Not Available [facility] 4 03:46:21 Medications Name Sig Start Date [...] Available No t Available Vitals Date Recorded Body height Heart rate Respiratory rate Oxygen saturation Body temperature Systolic And Diastolic Provider Name and Address Organization Details Last Updated DateTime 162.56 cm 75 /min 18 /min 97 % 97.2 [degF] 113/74 mm[Hg] eRfugio Lezama MD [address] [place] [address],[address], [place], [address] [facility] 13:14:28 Social History None recorded. Functional Status None recorded. Mental Status None recorded. Family History Nothing Reported. Medical History No medical history recorded. Past Encounters Encounter ID Performer Location Encounter Start Date Encounter Closed Date Diagnosis/Indication Diagnosis SNOMED-CT Code Diagnosis ICD10 Code Diagnosis IMO Codes Diagnosis Note [id number] Refugio Lezama MD [facility] [address] [place] [phone] 01/02/2025 13:13:26 01/04/2025 14:48:02 [employer] 37776400 R68.2 8024 Cough 24575392 R05.9 [id number] Health Concerns Section Related Observation LastModified by Organization Detai ls LastModified Time None Recorded Concern Status LastModified by Organization Details LastModified Time None Recorded Payers Encounter Date Sequence Insurance Name Policy Number Policy Kelly Covered Member ID Kelly Member ID Guarantor Name 01/02/2025 1 [facility] - DOS ON OR AFTER 2022 - DUAL ELIGIBLE - SKILLED NURSING OPTIONS AND ONE CARE (MEDICARE REPLACEMENT/AD VANTAGE - HMO) Brant Ng [id number] Brant Richard Hernandez Notes Date Note Type Note Provider Name and Address Organization Details Recorded Time 5 text/html ROS as noted in the HPI Reason for RequestSOB/pain in chestCRC Nurse Triage Notes (Misti Nolen)59 y.o male complains of Breathing ProblemsSelf-referring. Increased SOB and chest pain starting Tuesday morning. Went to ER last night - did cardiac work up - all normal. Discharged without medications. Unsure of fever - doesn't have thermometer. Headache -PRN tylenol with minimal effect. Reporting dizziness, no recent falls/injury. Intermittent productive cough - white phlegm. Increased WATERMAN. Using inhalers and nebulizers with minimal effect. Reports mild BLE in one leg. On baseline nocturnal O2 via NC, no recent increases. Denies orthopnea, sleeps on his side. Speaking in complete sentences with some breaks to breath, no obvious distress heard. No audible wheezing. Adequate urine output, eating and drinking well. Reports diarrhea starting yesterday, denies blood in stool. On Eliquis BID. Unsure of kidney issues.I provided information on the mobile health provider response time and advised the patient and/or caregiver to monitor reported signs and symptoms. I discussed the warning signs of when to seek emergency care.Patient ReportsCough, fever greater than 2 days ; Lower extremity swelling; History of asthma, increased use of inhaler; COPD; Sputum increase ; Cough; Shortness of breath with exertionDeniesIncreased work of breathing/labored with or without feverUnable to speak in full sentences without distressDiscoloration of skin -cyanosisNeeds to sleep sitting up, can t catch breathShortness of breath in setting of confusionCOVID ExposurePain with inspirationPast Medical History (PMH)COPD/Asthma, Hypertension, Severe Persistent Mental Illness (SPMI), Epilepsy/Seizure Disorder, Diabetes Mellitus Type 2, AsthmaReviewed at1 - :35AllergiesPenicillins, AspirinReviewed at1 - :35This was a supervised home visit with senior credit officer Ailyn Drake. Refugio Lezama supervised the care of this patient (not Chava Lux). Pt with history of Sz d/o, schizoaffective d/o, COPD, DM2, CONNOR.Pt reports 1 week of dry mouth, then reports he developed anterior CP and SOB since yesterday AM. Pain is pleuritic and has been constant. No change with exertion. Pt also has noted since yesterday a headache, dizziness/vertigo (which is chronic), nausea, intermittent NB vomiting, and loose stool. Pt also reports cough productive of brown sputum. No fevers or chills. Pt was seen at the ED at [facility] yesterday, 01/01 with these complaints. I have reviewed ED results: EKG with non specific T wave changes, Chest XR with LLL infiltrate vs opacity, labs unremarkable with negative troponins x2, no leukocytosis on CBC, negative covid/flu. Pt was discharged home. [facility] continues to have a mild cough and anterior CP which remains constant, currently non pleuritic. No fevers or current SOB. No current nausea or vomiting today. His dizziness has improved with prescribed meclizine.Pt reports that the primary reason he called for visit today is persistent feeling of dry mouth. He reports that he is drinking fluids. Tiera Abbott MD [address] [facility],[address], [place], [address], [employer] 01/04/2025 17:43:15
--- OUTSIDE RECORDS SUMMARY | 2025-02-09 17:42 | XMS_ITS | Encounter Summary ---
Author Organization [facility] Address [address] [place] [address] Encounters * CPT with Medical [facility] at [facility] on 2025-01-12 { reasonForRequest : Patient just got home from the ER, and now his Stomach hurts. ", patientReports : Vague abdominal pain greater than 24 hours; Constipation; Nausea with or without vomiting; Inability to tolerate foods, fluids or daily medications , denies :[ Sharp focal or diffuse abdominal pain , Vomiting blood/coffee ground material , Bloating, jaundice new onset with pain , Nausea and vomiting greater than 2 hours with abdominal pain , Tearing pain that radiates to back , Food Impaction , Diarrhea no blood in stool ], chiefComplaints : Abdominal Pain , pmh : COPD/Asthma, Hypertension, Severe Persistent Mental Illness (SPMI),Epilepsy/Seizure Disorder, Diabetes Mellitus Type 2, Asthma , allergies : Penicillins, Aspirin , otherAllergies :null, painAssessment : , v isitOutcome : , additionalComments : 59 y.o male complains of Abdominal Pain\n\nSelf-referring. Recent admission to hospital from Tuesday until this yesterday. Reports that they put him on a liquid diet while in the hospital. Did not discharge him with any medications.Voiding adequately. Reports that they did a scan of his abdomen and head/neck - all WNL. Unsure of why they did the scan of his head/neck. Poor PO intake - vomiting food after eating it, only able to tolerate liquids. Voiding adequately. Was discharged this afternoon but unsure why because still w/abdominal pain and nausea. Took PRN tylenol for pain - 2 hrs ago. On anticoagulation - unsure of name. Denies kidney issues. Last seizure 2 weeks ago - reports that he has breakthrough seizures on occasion. Poor historian - difficult triage. \n\n\nI provided information on the mobile health provider response time and advised the patient and/or caregiver to monitor reported signs and symptoms. I discussed the warning signs of when to seek emergency care. } [place], the home of a 60-year-old male complaining of abdominal pain. Patient has not had a bowelmovement in seven days, and was released from the hospital today. Patient reports 10 out of 10 painand generalized tenderness in the whole abdominal area. Patient is AO times three, patient has not been able to keep down any of his psychiatric medicationand is now hearing voices. The patient???s pulse is strong and regular with no edema and no swelling in the lower extremities. Patient is breathing well and his lungs sound clear. Patient???s abdomenis distended and hard and painful on palp throughout. Patient also reports not being able to fluctuate. Patient has only been able to drink broth and vomit when he tries eating anything solid. At this visit, the patient???s vitals were taken, an assessment was made. [facility] was contacted and given the assessment recommended going to the hospital right away. 911 was called. Handoff was made to local EMS. IV_(FLUIDS_AND/OR_MEDICATION), MEDICATION_IM Written by Medical [facility] on 2025-01-12
--- OUTSIDE RECORDS SUMMARY | 2025-02-09 17:42 | XMS_ITS | Continuity of Care Document ---
Author Name [facility], Medical Address [address] [place] [id number] Organization Unknown Address [address] [place] [address] Medications No known medications Problems No known problems
--- OUTSIDE RECORDS SUMMARY | 2025-02-09 17:42 | XMS_ITS | Encounter Summary ---
Author Organization [facility] Address [address] [place] [address] Encounters * CPT with Eldon Cole at [facility] on 2024-09-12 { reasonForRequest : pt complains of being dizzy , patientReports :"Head pain not relieved by medication greater than 8 hours; Dizziness with positional change; Sensitive to light , denies :[ Worst Headache of life , New onset of vision loss , Sudden onset -unilateral weakness/gait disturbance , Fall with head strike and altered LOC , New onset of Slurred speech or difficulty finding words , Sudden Mental status changes , Head pain with fever chills and neck pain , Seizure activity , Head pain greater than 8 hours -unrelated to falls or injury , Head pain with nausea vomiting ], chiefComplaints : Dizziness , pmh": COPD/Asthma, Hypertension, Severe Persistent Mental Illness (SPMI), Epilepsy/Seizure Disorder, Diabetes Mellitus Type 2, Asthma , allergies : Penicillins, Aspirin ,&qu ot;otherAllergies :null, painAssessment : , visitOutcome : , additionalComments : 58 y.o male complains of Dizziness\n\Elham is calling with c/o dizziness for a few days. He saw his PCP and found that he had neuropathy. He was not given any medications a the time. \nHe feels he is suppose to see another dr. \nHe is having dizziness when he sits or stands. \nHE does have a headache. \nthe dizziness is constant. \nHe is not having any nausea or vomiting. \nHe does not have any changes in his face, symmetrical.\n Tongue midline , no changes in his strength. \nHe has not had any med changes in the past few days. \nHe has been eating and drinking without issues. \nHe does have HTN has been taking his meds as prescribed. \n\nBlood sugar 209, normally 115. He takes PO \nHe does have seizures but denies any new activity \nI provided inf ormation on the mobile health provider response time and advised the patient and/or caregiver to monitor reported signs and symptoms. I discussed the warning signs of when to seek emergency care."} Dispatched to the call address for the male with dizziness. Pt advises that he was seen in the ED twice last week for the same complaints: headache, dizziness and double vision. Pt advises he was notgiven any medication and was discharged home same day. Pt was diagnosed with Vertigo with unknown etiology. Pt states the last time was September 05 and he felt this way for 2 days and then was better until he woke up this morning. Pt states he has been maintaining PO hydration. He denies chest pain, diff breathing/SoB, fevers, v/d but endorses nausea. Pt had CT, EKG and blood work done in the ED with all results non concerning (per discharge paperwork provided by Pt). Pt was found sitting at kitchen chair, CAOx4, airway open and patent, breathing non labored, able to speak in full sentences, skin PWD with good turgor, mucous membranes pink and moist, -JVD, -HEENT,pupils PERRL, lungs CTA, afebrile, - edema/swelling, abd soft non distended/tender. Dizziness Pt was assessed. [facility] consulted. IV (18g right forearm after 2 unsuccessful attempts-L AC/L hand) 1LNS given over approx 45min period. Pt given 1g PO Tylenol and 25mg PO Meclizine. Pt given 10mg metoclopramide and 25mg IV diphenhydramine. Pt reported an improvement to the dizziness and headache. IV removed. Red flags discussed. ALL times are approx. IV_(FLUIDS_AND/OR_MEDICATION), POC_BLOODWORK, ORTHOSTATIC_VITAL_SIGNS, PO_MEDICATION Written by Eldon Cole on 2024-09-12
--- OUTSIDE RECORDS SUMMARY | 2025-02-09 17:42 | XMS_ITS | Data Portability ---
Author Organization [employer], [facility] Address [address] [place] [address] Care Team Providers Care Real Time Trader Name Role Phone HIM CCA OTHER ODILIA BADILLO Primary Care Provider [phone] Assessment Encounter Date Assessment Date Assessment LastModified by Organization Details LastModified Time 07/11/2024 07/11/2024 I have reviewed and agree with the Assessment and Plan as documented by the Record Clerk Salesperson. I provided real-time medical direction via phone for this encounter, and was available for additional phone based assistance as needed. I would add/emphasize: Patient seen for facial swelling. He did not notice it but was informed about it by family members who were video-chatting with him. Initially felt bilateral posterior-auricul ar discomfort now just primarily on side w/ swelling. No oral involvement: tongue swelling, throat closing, dysphagia, etc. Per report no overlying skin changes: induration, hives etc. AVSS w/ unlabored respiration. Just finished colonoscopy prep (but accidentally: colo is not until next week.) No rapid progression on exam per report. Was using slightly more home O2 last night now on room air. Unclear etiology of pts sxs but does not seem to clearly be angioedema or allergic reaction given hx and exam. Will manage conservatively for now w/ APAP for discomfort, icing, rest and close home monitoring. Patient would benefit from check in or repeat [facility] visit in next 48 hours to assess symptom progression / resolution. Red flags that should prompt ED presentation (oral swelling, difficulty breathing, swallowing) discussed w/ pt. [email or web address] Not available 07/11/2024 10:14:00 09/12/2024 09/12/2024 Evaluation in th e field was performed by my social worker clinical colleague, as noted above, I provided real-time direction and supervision for this visit. This is a 58yo M with recent diagnosis of vertigo who presents complaining of dizziness. Patient has had headaches and dizziness for a couple of weeks. Has been to the ED twice, was diagnosed with vertigo and sent home but did not get any medications for treatment. He felt better for a few days after discharge but now the symptoms are back. Reports room spinning all the time. Has double vision which he had then as well. Denies any fever or other new symptoms. PE: General: Awake & alert, NAD Respiratory: Chest rise equal bilat, no increased wob CV: Regular rate, normal peripheral perfusion Neuro: A&Ox4, no focal deficits. Impression: Dizziness Plan: -VSS, appears well. -EMR reviewed from pt's 2 recent visits. He had labs with brain imaging, CT and CTA, as well as CTA of the neck and a neurology consult. He was discharged with plans to follow up for further workup of diplopia. No home meds given for management. -Today sx are unchanged from prior. -Treated with IV Reglan, Benadryl, 1L NS and po meclizine and Tylenol. [place] some relief from this. -I have prescribed meclizine to use PRN for dizziness at home. -Will need to f/u as planned from hospital or. Disposition: Remain at home We discussed the diagnostic uncertainty of home visits and the risk associated with this. In this case, the patient and I felt this to be an acceptable and reasonable amount of risk given the benefit of avoiding an ED visit. We discussed the need to seek care urgently/emergent ly in the setting of any new or worsening serious symptoms. [email or web address] Not available 09/12/2024 14:01:31 10/23/2024 10/23/2024 As noted, we howard e called to see this patient regarding concerns of Swelling, diarrhea, abdominal pain. Evaluation in the field was performed by my social worker clinical colleague, as noted above, I provided real-time direction and supervision for this visit. Medic states of the patient's main complaint is that he's been having tenderness over the moles on his back. There is no signs of erythema or signs of infection over this area. Patient states that his visiting nurse Keyana wanted him to go to the emergency department this morning because he was having facial swelling. He instead decided to call [facility]. I did attempt multiple times to get in touch with Keyana however she did not flower buncher or picker her phone or call back. Patient states that he is also having pain in his abdomen. He states that he's never had this before and has never had diverticulitis. It was also documented the patient was having chest pain which he declined. He states that he was having shortness of breath earlier today. He states that the shortness of breath has resolved. Since patient has not had diverticulitis in the past I recommended he get a CT scan in the emergency department where they can also evaluate if they notice any swelling. Patient is agreeable and states he would like to go to [facility] emergency department. I did call in an expect to [facility] ED. Impression: Abdominal pain, facial swelling, diarrhea. Plan: ED Disposition: We discussed the diagnostic uncertainty of home visits and the risk associated with this. In this case, the patient and I felt this to be an acceptable and reasonable amount of risk given the benefit of avoiding an ED visit. We discussed the need to seek care urgently/emergent ly in the setting of any new or worsening serious symptoms, particularly CT of abdomen and pelvis to rule out diverticulitis. [email or web address] Not available 10/23/2024 13:07:29 01/02/2025 01/02/2025 I have reviewed and agree with the assessment and plan as documented by the social worker clinical. I provided real time medical direction for this encounter and was immediately available to provide additional phone based assistance as needed. History as noted by social worker clinical. Impression: Pt with history as noted, reporting 1 week of dry mouth, which his predominant complaint today. He denies any new medications or dosage changes prior to these symptoms. Pt also reporting multiple other complaints since yesterday including a cough, SOB, constant anterior CP, SOB, CHATMAN, dizziness, intermittent nausea and loose stool. As noted, pt evaluated yesterday in the [facility] ED yesterday and had a negative workup [...] are reviewed with him. On 01/02/25, the [employer] platform system was down. As part of this downtime, any encounter that took place on 01/02/25 did not have the Mobile [employer] Provider clinical information, including vital signs and point of care data, incorporated into the [facility] note. [email or web address] Not available 01/04/2025 14:46:09 Plan of Treatment Reminders Order Date Submit Date Provider Last Modified By Organization Details Last Modified Time Details Appointments None recorded. Lab rapid flu (A+B) [address], [id number] 13:39:40 rapid SARS CoV 2 Ag, QL IA, respiratory specimen [address], [id number] 13:39:40 Referral None recorded. Procedures None recorded. Surgeries None recorded. Imaging None recorded. Medication Orders sodium chloride 0.9 % intravenous solution [address], [address] [place] [address], [id number], 12:37:21 meclizine 25 mg tablet [address], [address] [place] [address], [id number], 5 12:37:21 metoclopram gely 5 mg/mL injection solution [address], [address] [place] [address], [id number], 5 12:37:21 diphenhydra mine 50 mg/mL injection solution [address] [facility] [address] [facility], [address] [place] [address], [id number], 5 12:37:21 acetaminoph en 500 mg tablet [address] [facility], [address] [place] [address], [id number], 5 12:37:21 meclizine 25 mg tablet 2024 025 [facility], [address] [place] [address], [id number], 18:42:09 Patient TargetsNo targets recorded. Patient InstructionsNo instructions recorded. Reason for Referral None Reported. Results Created Date Observation Date Name Description Value Unit Range Abnormal Flag Note LastModifiedBy Organization Detail LastModifiedTime 01/03/2001/02/2025 rapid SARS CoV 2 Ag, QL IA, respi rator y speci men rapid SARS CoV 2 Ag, QL IA, respiratory specimen negati ve Not Available [address], [address] 01/02/2025 13:39:16 01/03/20 25 01/02/2025 rapid flu (A+B) Flu negati ve Not Available [address], [address] 01/02/2025 13:39:15 Result Notes None recorded. Medical Equipment None Reported. Allergies Allergen ID Allergen Name Allergen Category Reaction Reaction Severity Criticality Documentation Date Start Date Code Code System Note Provider Name and Address Organization Details Recorded Time 92082 lactulose medicatio n Not available Not available Not available 01/02/2025 6218 RxNorm Not Available [facility] - External Data Service - prod 13:14:32 2733 Product containin g penicilli n (product) medicatio n Not available Not available Not available 09/09/2022 82663 8001 SNOMED Not Available [facility] - production 4 03:46:21 2734 aspirin medicatio n Not available Not available Not available 09/09/2022 1191 RxNorm Not Available [facility] - [facility] 4 03:46:21 Medications Name Sig Start Date Stop Date Status Note LastModified by Organization Details LastModified Time comfrt touch pad alc prep active Not Available Not Available Not Available comfrt touch alc prep pad active Not [...] Not Available Not Available No t Available Tab-A-Ledoan 400 mcg tablet TAKE 1 TABLET BY MOUTH DAILY active Not Available Not Available No t Available Vitals Date Recorded Oxygen saturation Heart rate Body temperature Body weight Body height Respiratory rate Systolic And Diastolic Provider Name and Address Organization Details Last Updated DateTime 5 96 % 70 /min 98 [degF] 151241 g 152.4 cm 14 /min 142/84 mm[Hg] Not Available [employer] [employer] 5 09:12:34 Date Recorded Oxygen saturation Body temperature Heart rate Respiratory rate Systolic And Diastolic Provider Name and Address Organization Details Last Updated DateTime 5 97 % 98.1 [degF] 67 /min 16 /min 132/70 mm[Hg] Not Available [facility] [employer] [employer] 5 12:30:45 Date Recorded Oxygen saturation Body height Heart rate Body weight Respiratory rate Body temperature Systolic And Diastolic Provider Name and Address Organization Details Last Updated DateTime 5 97 % 162.56 cm 72 /min 16937.6 g 14 /min 98 [degF] 131/92 mm[Hg] Not Available [employer] [facility] [employer] 5 12:23:30 Date Recorded Body height Heart rate Respiratory rate Oxygen saturation Body temperature Systolic And Diastolic Provider Name and Address Organization Details Last Updated DateTime 5 162.56 cm 75 /min 18 /min 97 % 97.2 [degF] 113/74 mm[Hg] Refugio Lezama MD [address] [facility],[address], [place], [address], [place] - [employer] 5 13:14:28 Date Recorded Heart rate Oxygen saturation Respiratory rate Body height Body temperature Body weight Systolic And Diastolic Provider Name and Address Organization Details Last Updated DateTime 5 87 /min 97 % 18 /min 162.56 cm 97.8 [degF] 075930. 16 g 138/72 mm[Hg] Not Available [facility] - [employer] 5 20:55:20 Social History None recorded. Functional Status None recorded. Mental Status None recorded. Family History Nothing Reported. Medical History No medical history recorded. Past Encounters Encounter ID Performer Location Encounter Start Date Encounter Closed Date Diagnosis/Indication Diagnosis SNOMED-CT Code Diagnosis ICD10 Code Diagnosis IMO Codes Diagnosis Note [id number] Refugio Lezama MD [facility] - [facility] [address] [place] [phone] 0 06/29/2021 11:12:34 12/07/2021 16:48:14 Pain in lower limb [id number] M79.606 [id number] César Khan MD Main - [facility] [address] [place] [phone] 0 01/18/2022 13:55:40 01/19/2022 12:34:51 Nausea and vomiting [id number] R11.2 [id number] Rosey Herrera MD Main - [facility] [address] [place] [phone] 0 01/23/2022 11:14:56 01/23/2022 12:15:19 [id number] César Khan MD Main - [facility] [address] [place] [id number] 0 02/08/2022 11:06:16 02/10/2022 10:49:32 Headache [id number] R51.9 [id number] Yary Boyce MD Main - [facility] [address] [place] [id number] 0 03/25/2022 13:37:37 03/30/2022 19:44:29 Pain in lower limb 78723521 M79.606 56 year old male with chronic bilateral leg pains, being evaluated for this problem today. Patient reports was recently seen by his PCP, and was told his pains are a neuropathy , and has an appointmen t with a nerve doctor this afternoon virtually. Patient reports pain is from the knees down, and is present both at rest and on exertion. Taking tylenol and methacarba mol with little relief. Exam notable for normal vital signs, and slight darkening of feet bilaterall y, with good pulses and skin intact. Presentati on suggestive of neuropathy , although peripheral vascular disease also on the differenti al. Given that patient is scheduled for a virtual appointmen t with a provider for this issue, and he is stable, we will defer any treatment to outpatient team. [id number] Chase Baez MD Main - [facility] [address] [place] [phone] 0 04/16/2022 14:54:54 04/19/2022 10:58:38 Weakness present [id number] M62.81 Patient reports to the patient that he has felt weak for the last several months. He thought he had a fever this morning; afebrile on social worker clinical evaluation . He has no focal symptoms on ROS. Physical examinatio n is unremarkab le per social worker clinical. Labs obtained and unremarkab le. Recommende d supportive care, PCP follow-up, and to call us back if symptoms worsen. [id number] Wan Jacobs MD Main - [facility] [address] [place] [address] [phone] 0 05/15/2022 13:06:54 09/28/2022 14:14:57 Pain in bilateral legs [id number] 0121300 M79.604 This 56-year-ol d male with type 2 diabetes called [facility] complainin g of increasing bilateral foot pain with no history of trauma. He hasn't tried any medication s. I recommende d that he try a combinatio n of an NSAID and Tylenol until he can see his PCP or Endocrinol ogist. The patient agreed with this plan. [id number] Amador Castro MD Main - [facility] [address] [place] [phone] 0 05/29/2022 14:22:18 05/31/2022 13:42:28 Vertigo 164306134 R42 Dx with BPPV in ED; rx meclizine 25mg PO TID PRN. Given patient already on anticholin ergics, recommende d to take once daily though not giving relief. EKG with no evidence of Afib or structural cause of dizziness. Orthostati cs performed with SBP decreasing 18 points upon standing. Has Zofran for nausea though takes sparingly due to med interactio ns. Advised to hydrate, do exercises for BPPV and continue to only take Meclizine once daily, and follow up closely with his PCP [id number] Amador Castro MD Main - [facility] [address] [place] [address] [id number] 0 06/17/2022 18:10:54 06/22/2022 10:31:06 Nausea and vomiting 71132391 R11.2 Will give Zofran IV (has PO at home and 1L of LR Headache 88903231 R51.9 Has worked in past to give Toradol. Will give 1x today Mild dehydration 9939525 119 108 E86.0 POC BMP notable for low Na and low Cl. Giving 1L of LR. No red flag signs. [id number] Yary Boyce MD Main - [facility] [address] [place] [address] [phone] 0 07/01/2022 15:42:20 07/02/2022 10:28:14 Dysphagia 05477253 R13.10 56 year old male being evaluated for dysphagia. Patient reports had sudden onset chest discomfort after eating stuffed clamshells this morning. Pain has persisted since this, he has been able to tolerate PO since, with mild discomfort . He also reports some bilateral shoulder pains as well that are more bothesome today. He took one tylenol of 365 mg, his protonix and TUMS, without significan t relief. Exam notable for normal vital signs, and patient speaking in clear sentences without respirator y distress. EKG without ischemic changes. Presentati on consistent with possible esophageal irritation secondary to a large bolus of food. Recommend supportive care with patient's home PPI, tums prn, PO as tolerated, and higher dose of tylenol (up to 1 g q6h). [id number] Tiera Abbott MD Main - [facility] [address] [place] [address] [phone] 0 09/09/2022 13:57:55 09/09/2022 23:21:09 Pain of left eye [id number] 26269 H57.12 possible corneal abrasion- will cover w/ abx gttes- advised - needs full eye exam beyond scope of [facility] Malaise [id number] R53.81 feeling shaky without visible tremor ? etiology- no focal weakness noted on medic exam- advised is reassuring - advised need to f/u with pcp chata- further w/u beyond scope of [facility] [id number] Rosey Herrera MD Main - [facility] [address] [place] [address] [phone] 0 12/31/2022 13:25:07 01/03/2023 12:43:54 Malaise [id number] R53.81 [id number] Refugio Lezama MD Main - [facility] [address] [place] [address] [phone] 0 02/25/2023 10:39:57 02/26/2023 17:24:44 Closed injury of head [id number] 06 S09.90XA [id number] Amador Castro MD Main - [facility] [address] [place] [address] [phone] 0 03/27/2023 10:00:24 03/27/2023 14:02:36 Asthma 386808783 J45.909 Symptoms consistent with asthma exacerbati on. Saturating 90's on room air but worse subjective ly with ambulation . COVID/Flu negative. Moderate improvemen t with nebulizer. Amenable to short course of prednisone . Will give 60mg x1 now and then 50mg for 4 day burst. Discussed red flag signs for which to seek higher level of care. [id number] ALESSIO MASSEY MD Main - [facility] [address] [place] [address] [phone] 0 06/01/2023 18:23:31 06/06/2023 17:51:44 Gastroesophageal reflux disease 943934804 K21.9 Evaluation in the field was performed by my social worker clinical colleague, as noted above, I provided real-time direction and supervisio n for this visit. The evaluation revealed 57 yo male with hx of CVA on Plavix, Asthma, GERD on famotidine and Tums with worsening acid reflux that is not responding to TUMS today. Denies CP, SOB, N/V/D. Denies eating spicy food , had peanut butter and Jelly . He is taking famotidine with no help ECG with NSR 70 BPM. Borderline NV interval. No ST-T changes suggestive of acute ischemia Allergies : PNC and ASA Impression :Gastric reflux / Dyspepsia Plan:-Unfo rtunately the social worker clinical did not carry maalox or Lidocaine- Rx for pantoprazo le sent to pharmacy ( very little interactio n with Plavix that he takes s/p CVA- ASA allergy )-Rx for Maalox sent to his pharmacy-A dvised to avoid spicy food-Red flags discussed with the patient Primary care, considerGI f/u if ongoing dyspepsia / GERD. Thank you Dispositio n: We discussed the diagnostic uncertaint y of home visits and the risk associated with this. In this case, the patient and I felt this to be an acceptable and reasonable amount of risk given the benefit of avoiding an ED visit. We discussed the need to seek care urgently/e mergently in the setting of any new or worsening serious symptoms, particular ly CP, worsening reflux, N/V, SOB , vomiting blood, blood in the stool or dark stool. [id number] Zee Odell MD Main - [facility] [address] [place] [address] [id number] 0 06/18/2023 19:46:16 06/20/2023 18:31:27 Injury of head 71030191 S09.90XA [id number] Zee Odell MD Main - [facility] [address] [place] [address] 0 07/30/2023 14:59:30 08/01/2023 17:44:57 Migraine 25584826 G43.909 [id number] Zee Odell MD Main - [facility] [address] [place] [address] [phone] 0 08/29/2023 21:07:58 08/29/2023 21:42:20 Toothache 24622726 K08.89 [id number] Adrián Sidhu MD Main - [facility] [address] [place], [place] [phone] 0 10/21/2023 21:11:31 06/21/2024 20:09:56 Accidental fall [id number] W19.XXXA [id number] César Cole MD Main - [facility] [address] [place] [address] [id number] 0 11/27/2023 21:08:02 11/28/2023 20:36:54 Nausea and vomiting 17068255 R11.2 [id number] Wan Jacobs MD Main - [facility] [address] [place] [address] [id number] 0 12/11/2023 13:16:46 12/12/2023 13:26:06 Acute low back pain 952645392 M54.50 This 58-year-ol d male woke up this morning with acute low back pain with weakness and numbness in both lower extremitie s. The pain radiated down the back of both legs. He was unable to ambulate initially but now can slowly move using a walker. He has good bowel and bladder continence . He fell about a week ago with no obvious injuries. I recommende d that he go to the ER for possible imaging and a neurologic al evaluation . The patient agreed with the plan. He was sent to [facility] in [facility]. [id number] RAJENDRA STEVENS MD Main - [facility] [address] [place] [address] [phone] 0 03/25/2024 19:47:20 03/26/2024 21:03:17 Right flank pain 541156740 R10.9 Acute urin haris tract infection 699054328 N39.0 [id number] Refugio Lezama MD Main [facility] [address] [place] [address] [phone] 0 04/26/2024 12:02:36 04/26/2024 16:39:04 Herpes zoster 8322264 B02.9 [id number] Tiera Abbott MD Main - [facility] [address] [place] [address] [phone] 0 05/11/2024 16:20:45 05/12/2024 16:59:46 Weakness of bilateral lower limb [id number] 01808 M62.81 reported by patient subjective ly no objective weakness on [facility] exam-labs non-concer emma minor abnormalit ies and a 134 chloride 96. H&H is stable normal renal function/n ot dehydrated and blood glucose wnl. Advised EKG has some minor nonspecifi c changes from EKG on 10/21/2023 cannot rule out cardiac disease based on single EKG. Patient verbalized understand [facility] [id number] Sebastian Meehan MD Main - [facility] [address] [place] [address] [phone] 0 05/30/2024 11:53:06 05/30/2024 19:40:48 Facial swelling 474954640 R22.0 [id number] Sebastian Meehan MD Main - [facility] [address] [place] [address] [id number] 0 07/02/2024 10:45:18 07/02/2024 11:08:02 [id number] Evgeny Galvan MD Main - [facility] [address] [place] [address] [phone] 0 07/11/2024 09:09:33 07/11/2024 11:11:13 Facial swelling 553336917 R22.0 [id number] Radha Tate MD [address] [phone] 0 09/12/2024 12:30:42 09/12/2024 22:02:45 Dizziness 633898478 R42 49433 [id number] Jose Cooper MD [address] 53764-[address] 0 10/23/2024 12:23:20 10/23/2024 20:30:44 Left lower quadrant pain 211753241 R10.32 [id number] Refugio Lezama MD [address] 04550-581 0 01/02/2025 13:13:26 01/04/2025 14:48:02 Xerostomia 79647195 R68.2 8024 Cough 22948654 R05.9 [id number] ALESSIO MASSEY MD [address] 73649-507 0 01/11/2025 20:53:23 01/12/2025 16:05:47 Abdominal pain 86345279 R10.9 [id number] Evaluation in the field was performed by my social worker clinical colleague, as noted above, I provided real-time direction and supervisio n for this visit. The evaluation revealed 59-year-ol d male with history of COPD/asthm a, hypertensi on, severe persistent mental illness (SPMI), epilepsy/s eizure disorder, and type 2 diabetes mellitus presenting with abdominal pain, nausea, and vomiting for 1 week.He reports being evaluated twice at [facility] for the same complaints and was told [...] management . An expect was called at [facility] . Primary care, consider__ _ Dispositio [...] Member ID Kelly Member ID Guarantor Name 07/11/2024 1 [facility] - DOS PRIOR TO 2022 - DUAL ELIGIBLE (MEDICARE REPLACEMENT/AD VANTAGE - HMO) Brant Ng [id number] Brant Ng 02/09/2025 1 [facility] - DOS ON OR AFTER 2022 - DUAL ELIGIBLE - NURSING HOME OPTIONS AND ONE CARE (MEDICARE REPLACEMENT/AD VANTAGE - HMO) Brant Ng [id number] Brant Ng Notes Date Note Type Note Provider Name and Address Organization Details Recorded Time 5 text/html CRC Nurse Triage Notes (Genna Richmond): Reason For Request: Patient says his whole face is swollen, just woke up like that, and minor short of breath. Patient Reports: COPD; Shortness of breath with exertion Denies: Increased work of breathing/labored with or without fever Unable to speak in full sentences without distress Discoloration of skin -cyanosis Needs to sleep sitting up, can t catch breath Shortness of breath in setting of confusion Cough, fever greater than 2 days Lower extremity swelling History of asthma, increased use of inhaler COVID Exposure Sputum increase Cough Pain with inspiration Chief Complaints: Extremity Swelling, Breathing Problems PMH: COPD/Asthma, Hypertension, Severe Persistent Mental Illness (SPMI), Epilepsy/Seizure Disorder, Diabetes Mellitus Type 2 PMH Reviewed at 07/11/2024:13 Allergies Reviewed at 07/11/2024:13 Comments: 58 y.o male complains of Extremity Swelling Pt woke up with facial swelling. HE uses o2 when he was sleeping. He had it on 3LNC and felt that it may have been too high. He has had the O2 for a few years but has memory loss and does not know what his baseline is. He took some meds for his bowels last night, big bottle for coloscopy. Face is now swollen, it feels hot and he has a mild sob. HE it talking in full sentences. The face is not red but painful when he touches it. He has no issues with swallowing. He denies any bite alejandro on his face. He denies any wheeze or rattle in his chest. He does have COPD , only 02 at night. HE put ice on the area but stopped due to burning. Pt was reminded to call 911 if swallow gets worse or breathing as he maybe having an allergic reaction or swelling maybe due to high NA from the drink I provided information on the mobile health provider response time and advised the patient and/or caregiver to monitor reported signs and symptoms. I discussed the warning signs of when to seek emergency care. ........................... ........................... ........................... ........................... ........................... ...... Record Clerk Salesperson Note From Leonard Espinoza: Patient alert and oriented complains of bilateral pain on face cheeks x 4 to 6 hours. Patient reports he slept poorly the night before, slept very well, longer than normal last night. Patient uses oxygen at night. Patient reports he used colonoscopy prep two nights ago. Patient room denies ear, pain, eye, pain, difficulty swallowing teeth, pain, or any other pain or complaint. Patient denies fever, chills, nausea, vomiting, diarrhea, difficulty breathing, or any other pain or complaint. Patient pink warm, dry, secondary exam unremarkable, facial swelling in picture, lung sounds clear, negative increased work of breathing. Positive full sentences, patient walks with a steady even gait. Abdomen soft nontender extremities unremarkable. Tenderness noted bilateral cheek area. [facility] advises patient to use Tylenol for pain, follow up with PCP if needed. Red flags patient education discussed. Patient takes Tylenol 325 mg times two from his own stock, administering himself. Patient demonstrates understanding of care and plan. ........................... ........................... ........................... ........................... ........................... ...... [facility] Consulted: Evgeny Galvan ........................... ........................... ........................... ........................... ........................... ...... Disposition: Fulfilled Evgeny Galvan MD [address] [place] [address],[address], [place], [address], Tarisa 07/11/2024 10:14:14 5 text/html ROS as noted in the HPI CRC Nurse Triage Notes (Genna Richmond): Reason For Request: pt complains of being dizzy Patient Reports: Head pain not relieved by medication greater than 8 hours; Dizziness with positional change; Sensitive to light Denies: Worst Headache of life New onset of vision loss Sudden onset -unilateral weakness/gait disturbance Fall with head strike and altered LOC New onset of Slurred speech or difficulty finding words Sudden Mental status changes Head pain with fever chills and neck pain Seizure activity Head pain greater than 8 hours -unrelated to falls or injury Head pain with nausea vomiting Chief Complaints: Dizziness PMH: COPD/Asthma, Hypertension, Severe Persistent Mental Illness (SPMI), Epilepsy/Seizure Disorder, Diabetes Mellitus Type 2, Asthma PMH Reviewed at 09/12/2024:32 Allergies Reviewed at 09/12/2024:32 Comments: 58 y.o male complains of Dizziness He is calling with c/o dizziness for a few days. He saw his PCP and found that he had neuropathy. He was not given any medications a the time. He feels he is suppose to see another dr. He is having dizziness when he sits or stands. HE does have a headache. the dizziness is constant. He is not having any nausea or vomiting. He does not have any changes in his face, symmetrical. Tongue midline , no changes in his strength. He has not had any med changes in the past few days. He has been eating and drinking without issues. He does have HTN has been taking his meds as prescribed. Blood sugar 209, normally 115. He takes PO He does have seizures but denies any new activity I provided information on the mobile health provider response time and advised the patient and/or caregiver to monitor reported signs and symptoms. I discussed the warning signs of when to seek emergency care. ........................... ........................... ........................... ........................... ........................... ...... Record Clerk Salesperson Note From Sebastian Lux: Dispatched to the call address for the male with dizziness. Pt advises that he was seen in the ED twice last week for the same complaints: headache, dizziness and double vision. Pt advises he was not given any medication and was discharged home same [...] turgor, mucous membranes pink and moist, -JVD, -HEENT, pupils PERRL, lungs CTA, afebrile, -edema/swelling, abd soft non distended/tender. Dizziness Pt was assessed. [facility] consulted. IV (18g right forearm after 2 unsuccessful attempts-L AC/L hand) 1L NS given over approx 45min period. Pt given 1g PO Tylenol and 25mg PO Meclizine. Pt given 10mg metoclopramide and 25mg IV diphenhydramine. Pt reported an improvement to the dizziness and headache. IV removed. Red flags discussed. ALL times are approx. [facility] Medication Orders: sodium chloride 0.9 % intravenous solution: Administered meclizine 25 mg tablet: Administered metoclopramide 5 mg/mL injection solution: Administered diphenhydramine 50 mg/mL injection solution: Administered acetaminophen 500 mg tablet: Administered ........................... ........................... ........................... ........................... ........................... ...... [facility] Consulted: Radha Tate ........................... ........................... ........................... ........................... ........................... ...... Disposition: Fulfilled Radha Tate MD [address] [place] [address],[address], [place], [address], Tarisa 09/12/2024 14:01:37 5 text/html ROS as noted in the [facility] CRC Nurse Triage Notes (Demi Hernandez): Reason For Request: Patient feels weak, and hands are swollen. Denies: Dickson Flash, circumferential dickson Dickson reported with black tissue to the area Open skin area after a fall with uncontrolled bleeding Abscess/infection with streaking noted, presence of fever or without Chief Complaints: Diarrhea, Dizziness, Headache, Weakness, Wound Care PMH: COPD/Asthma, Hypertension, Severe Persistent Mental Illness (SPMI), Epilepsy/Seizure Disorder, Diabetes Mellitus Type 2, Asthma PMH Reviewed at 10/23/2024:38 Allergies Reviewed at 10/23/2024:38 Comments: 59 y.o male complains of Diarrhea, Dizziness, Headache, Weakness, Wound Care Patient calling in to place a referral. Patient who woke up with hand and face swelling. He denies any lip or tongue swelling, no difficulty swallowing, no wheezing or stridor heard by this nurse- Patient does wear 2L o2 at HS, and has kept on this morning, he does not check his o2 levels and his nurse has not arrived yet. He is unsure if his face has any redness, rashiness or patches. States his hands are dark , no red or warm, but they are painful. He has some chest pain, but is not new, has it intermittently with breathing. Denies any new foods, medications, or toiletries. He does endorse headaches and dizziness. Denies fever/chills, no nausea or vomiting, +diarrhea. His blood sugar was 157 this morning. He would like to be evaluated. I provided information on the mobile health provider response time and advised the patient and/or caregiver to monitor reported signs and symptoms. I discussed the warning signs of when to seek emergency care. ........................... ........................... ........................... ........................... ........................... ...... Record Clerk Salesperson Note From Leonard Espinoza: Patient alert and oriented cc: pain at site of raised dark spots on back times months. Patient also complains of lower left abdominal pain one of 10, slightly tender with bloated firm feeling to abdomen. Patient also reports green diarrhea times one this morning. Patient denies nausea vomiting fever, chills, weakness, or any other pain or complaints. Patient reports he had dizziness and chest pain earlier, but that has subsided. Patient reports no history of diverticulitis. Patient reports some memory loss, at baseline. Patient pink warm dry, lung sounds clear negative increased work of breathing positive full sentences, abdomen, firm, some tenderness noted left lower quadrant. No edema noted. Patient walks with a cane. [facility] orders patient to [facility] for CAT scan to rule out diverticulitis. Patient agrees, press his lifeline button activating 911 response. Tab DEVEN Med[facility] to [facility] ED. ........................... ........................... ........................... ........................... ........................... ...... [facility] Consulted: Jose Cooper ........................... ........................... ........................... ........................... ........................... ...... Disposition: Fulfilled Jose Cooper MD [address] [facility],[address], [place], [address], Tarisa 10/23/2024 14:25:45 5 text/html ROS as noted in the HPI Reason for RequestSOB/pain in chestCR Nurse Triage Notes (Misti Nolen)59 y.o male [...] Diabetes Mellitus Type 2, AsthmaReviewed at1 - 11:35AllergiesPenicillins, AspirinReviewed at1 - 11:35This was a supervised home visit with social worker clinical Ailyn Drake. Refugio Lezama supervised the care [...] Pt was seen at the ED at [facility] yesterday, 01/01 with these complaints. I have reviewed ED results: EKG with non specific T wave changes, Chest XR with LLL infiltrate vs opacity, labs unremarkable with negative troponins x2, no leukocytosis on CBC, negative covid/flu. Pt was discharged home. Pt called for [facility] visit today since he continues to have [...] is drinking fluids. Tiera Abbott MD [address] [facility],[address], [place], [address], Tarisa 01/04/2025 17:43:15 5 text/html ROS as noted in the [facility] CRC Nurse Triage Notes (Misti Nolen): Reason [...] 2, Asthma PMH Reviewed at 01/11/2025 - :24 Allergies Reviewed at 01/11/2025 - :24 Comments: 59 y.o male complains of Abdominal [...] signs of when to seek emergency care. ........................... ........................... ........................... ........................... ........................... ...... Record Clerk Salesperson Note From Philip Wilson: [place], the home [...] vitals were taken, an assessment was made. [facility] was contacted and given the assessment recommended going to the hospital right away. 911 was called. Handoff was made to local EMS. ........................... ........................... ........................... ........................... ........................... ...... [facility] Consulted: Alessio Massey ........................... ........................... ........................... ........................... ........................... ...... Disposition: Fulfilled ALESSIO MASSEY MD [address] [facility],[address], [place], [address], [employer] 01/11/2025 21:38:52
--- OUTSIDE RECORDS SUMMARY | 2025-02-09 17:42 | XMS_ITS ---
Author Organization [facility] Care Team Providers Care Crm Architect Name Role Phone Linsey Lilly Unavailable Unavailable Racheal Thurman Unavailable Unavailable Cash Landers Unavailable Unavailable Sue Balderas Unavailable Unavailable Dexter Otoole Unavailable Unavailable Antonella Velazquez Unavailable Unavailable Allergies and adverse reactions Code CodeSystem Substance Reaction Severity StartDate Concern Status 1191 RXNORM Aspirin Unknown 02/24/2022 active [place] Unknown 03/02/2022 active 6218 RXNORM Lactulose Unknown 02/24/2022 active [place] Unknown 03/02/[address] Penicillins Unknown 02/24/2022 activ e Care Team Name Role Address Phone Organization Dates Cash Landers PCP [address], [place], [address], [place] (Office): [facility] 02/25/2022 - 03/12/2022 Linsey Lilly [address] [place], [address], [place] (Office): [facility] 02/25/2022 - 03/12/2022 Racheal Thurman [address], [place], [address], [place] (Office): [facility] 02/25/2022 - 03/12/2022 Sue Balderas [address], [place], [address], [facility] (Office): [facility] 02/25/2022 - 03/12/2022 Dexter Otoole [address] [place], [place], [address] (Office): [facility] 02/25/2022 - 03/12/2022 Antonella Velazquez [address] [place], [address], [facility] (Office): [facility] 02/25/2022 - 03/12/2022 Mental Status Section Date Assessment Total Score Description 03/12/2022 CAM 0 No delirium ind icated 03/02/2022 BIMS 13 cognitively int act CAM 0 No delirium ind icated Insurance Providers Coverage Status Coverage Type Relationship to Subscriber Member Identifier Subscriber Identifier Group Identifier Payer Identifier and Other information 2022 Code: 51 Code System OID:2.16.840.1 .[id number]. 5 Code System Name: Source of Payment Typology (PHDSC) Display: Managed Care (Private) Translation: Code: HM Code System: OID:2.16.840.1 .210036.6.255. 1336 Code System Name: Insurance Type Code ([id number]) Display Name: Health Maintenance Organization (HMO) Plan Code: SELF Code System Name: HL7 RoleCode Code System OID:[id number] .527286.5.111 Display Name: Self [id number] Root: [id number] Payer Identifier: Root: [id number] Extension: [id number] Payer Name: [facility] Address: [address] [place] [address] City: [place] State: [place] Country: [place] Problems Problem # Description Date of onset Resolved Date Code CodeSystem Concern Status 1 COVID-19 03/09/[address] active 2 ANXIETY DISORDER, UNSPECIFIED 02/24/[address] active 3 BIPOLAR DISORDER, UNSPECIFIED 02/24/[address] active 4 ESSENTIAL (PRIMARY) HYPERTENSION 02/24/[address] active 5 HYPERLIPIDEMIA, UNSPECIFIED 02/24/[address] active 6 MUSCLE WEAKNESS (GENERALIZED) 02/24/[address] active 7 NEURALGIA AND NEURITIS, UNSPECIFIED 02/24/[address] active 8 OTHER ABNORMALITIES OF GAIT AND MOBILITY 02/24/[address] active 9 OTHER SEIZURES 02/24/[address] act fani 10 SCHIZOPHRENIA, UNSPECIFIED 02/24/[address] active 11 SLEEP APNEA, UNSPECIFIED 02/24/[address] active 12 TYPE 2 DIABETES MELLITUS WITHOUT COMPLICATIONS 02/24/[address] active 13 UNSPECIFIED FALL, SEQUELA 02/24/[address] active 14 UNSTEADINESS ON FEET 02/24/[address] active 15 WEAKNESS 02/24/[address] active Reason for Referral No Reasons for Referral Entered Social History Social History Observation Description Start Date End Date Code Code System Current Smoking Status Tobacco smoking consumption unknown 926356573 SNOMED CT Sex Assigned At Male 1965 11514-5 [facility] Gender Identity Sexual Orientation Vital Signs Code Code System Vitals Name Values and Units Timing Information 2339-0 [facility] Blood Sugar Yoacw=613.0 Units=mg/dL 03/12/2022 8462-4 [facility] Blood Pressure-Diastolic Value=93 Un its=mmHg 03/12/2022 8480-6 [facility] Blood Pressure-Systolic Pkmgq=027 Un its=mmHg 03/12/2022 8310-5 [facility] Body Temperature Value=97.9 Units= F 03/12/2022 8867-4 [facility] Heart rate Value=72.0 Units=/min 08/2022 07587-7 [facility] O2 % BldC Oximetry Value=94.0 Units= % 03/12/2022 09585-4 [facility] Pain Level Value=0.0 03/12/2022 9279-1 [facility] Respiratory Rate Value=18.0 Units=/m in 03/07/2022 74593-1 [facility] Weight Kalyv=793.4 Units=Lbs 8302-2 [facility] Height Value=65.0 Units=Inches 02/25/2022
--- OUTSIDE RECORDS SUMMARY | 2025-02-09 17:42 | XMS_ITS | Continuity of Care Document ---
Author Name Eldon Cole Address [address] [place] [address] Organization Unknown Address [address] [place] [address] Medications No known medications Problems No known problems
--- OUTSIDE RECORDS SUMMARY | 2025-02-09 17:42 | XMS_ITS ---
Author Organization [facility] Care Team Providers Care Application Trainer Name Role Phone Skye Espino Unavailable Unavailable Maria Teresa Del Rosario Unavailable Unavailable Parvin Newby Unavailable Unavailable Jamie MARIA, Siomara Barrett Unavailable Unavailable Sasha Flores Unavailable Unavailable Pino Hopkins Unavailable Unavailable Allergies and adverse reactions Code CodeSystem Substance Reaction Severity StartDate Concern Status 1191 RXNORM Aspirin Unknown 05/23/2020 active 6218 RXNORM Lactulose Unknown 05/23/[address] Penicillins Unknown 05/23/2020 activ e Care Team Name Role Address Phone Organization Dates Maria Teresa Del Rosario PCP [address] [address], [facility] (Office): : [facility] 05/23/2020 - 06/05/2020 Skye Espino [address] [place] [address], [address], [facility] (Office): : [phone] [facility] 05/23/2020 - 06/05/2020 Parvin Newby [address] [place] [address], [facility], [facility] (Office): : [facility] 05/23/2020 - 06/05/2020 Siomara Ayala NP [address] [place] [address] (Office): [facility] 05/23/2020 - 06/05/2020 Sasha Sainzne [address] [facility] [address], [address] (Office): : [facility] 05/23/2020 - 06/05/2020 Pino Hopkins [address] [facility] [address], [place] [address], [facility] (Office): : [facility] 05/23/2020 - 06/05/2020 Mental Status Section Date Assessment Total Score Description 06/05/2020 CAM 0 No delirium ind icated Insurance Providers Coverage Status Coverage Type Relationship to Subscriber Member Identifier Subscriber Identifier Group Identifier Payer Identifier and Other information Code: Code System OID:2.16.840.1 .986408.3.221. 5 Code System Name: Source of Payment Typology (PHDSC) Display: Managed Care (Private) Translation: Code: Code System: OID:2.16.840.1 .972331.6.255. 1336 Code System Name: Insurance Type Code ([id number]) Display Name: Health Maintenance Organization (HMO) Plan Problems Problem # Description Date of onset Resolved Date Code CodeSystem Concern Status 1 OTHER ABNORMALITIES OF GAIT AND MOBILITY 06/05/[address] active 2 ANXIETY DISORDER, UNSPECIFIED 05/23/[address] active 3 BIPOLAR DISORDER, UNSPECIFIED 05/23/[address] active 4 CONVERSION DISORDER WITH SEIZURES OR CONVULSIONS 05/23/[address] active 5 DIABETES MELLITUS DUE TO UNDERLYING CONDITION WITH DIABETIC NEUROPATHY, UNSPECIFIED 05/23/[address] active 6 ESSENTIAL (PRIMARY) HYPERTENSION 05/23/[address] active 7 HISTORY OF FALLING 05/23/[address] active 8 HYPERLIPIDEMIA, UNSPECIFIED 05/23/[address] active 9 PERIPHERAL VASCULAR DISEASE, UNSPECIFIED 05/23/[address] active 10 REPEATED FALLS 05/23/[address] ac tive 11 SCHIZOPHRENIA, UNSPECIFIED 05/23/[address] active 12 TYPE 2 DIABETES MELLITUS WITH DIABETIC NEUROPATHY, UNSPECIFIED 05/23/[address] active 13 TYPE 2 DIABETES MELLITUS WITH HYPERGLYCEMIA 05/23/[address] active 14 TYPE 2 DIABETES MELLITUS WITHOUT COMPLICATIONS 05/23/[address] active 15 UNSTEADINESS ON FEET 05/23/[address] active 16 WEAKNESS 05/23/[address] active Reason for Referral No Reasons for Referral Entered Social History Social History Observation Description Start Date End Date Code Code System Current Smoking Status Tobacco smoking consumption unknown 663065491 SNOMED CT Sex Assigned At Male 1965 [address]-[address] [facility] Gender Identity Sexual Orientation Vital Signs Code Code System Vitals Name Values and Units Timing Information 9279-[address] [facility] Respiratory Rate Value=18.0 Units=/m in 06/05/2020 8462-[address] [facility] Blood Pressure-Diastolic Value=83 Un its=mmHg 06/05/2020 8480-6 [facility] Blood Pressure-Systolic Fcift=025 Un its=mmHg 06/05/2020 8310-[address] [facility] Body Temperature Value=97.9 Units= F 06/05/2020 8867-[address] [facility] Heart rate Value=70.0 Units=/min 03/2020 74491-[address] [facility] O2 % BldC Oximetry Value=94.0 Units= % 06/05/2020 52234-[address] [facility] Pain Level Value=0.0 06/05/2020 2339-0 [facility] Blood Sugar Zkpyj=093.0 Units=mg/dL 06/05/2020 03457-9 [facility] Weight Fsxzs=528.2 Units=Lbs 8302-2 [facility] Height Value=65.0 Units=Inches 05/23/2020
--- OUTSIDE RECORDS SUMMARY | 2025-02-09 17:42 | XMS_ITS | Patient Health Record ---
Author Organization [facility] Address [address] [place] [address] Care Team Providers Care Pot Operator Name Role Phone Alethea MONROE, Steffany Primary Care Provider John Boss [phone] Allergies Allergen (clinical drug ingredient) Drug/Non Drug Allergy documented on EMR Reaction Allergy Type Onset Date Status aspirin Aspirin Unknown Drug Allergy Active Reason For Referral No Information Medications Medication SIG (Take, Route, Frequency, Duration) Notes Start Date End Date Status Pravastatin Sodium 80mg 03/07/190003/07 Active Geodon 80mg Active Multi Vitamin/Minerals 03/07/19001900 Active Neurontin 300mg Ac tive Colace 100mg Activ e Vistaril 25mg Acti ve Ativan 1mg Active Norvasc 5mg Active Trileptal 600mg Ac tive Cogentin 80mg Acti ve Oxygen-Helium 2l A ctive Tylenol 650mg Acti ve NuLev 0.125mg Acti ve Protonix 40mg Acti ve Prochlorperazine 25mg 03/07/1900 901 Active Fish Oil 1000mg Ac tive Social History Social History Additional Details Category Social Info Options Details Miscellaneous: Marital status: single Occupation: disabled Section Notes: Nonsmoker; no alcohol x 15 y rs-heavy in the past Problems Problem Type SNOMED Code ICD Code Onset Dates Problem Status W/U Status Risk Notes Problem Gastroesophageal reflux disease (902410110) GERD (gastroesophage al reflux disease) (530.81) Active confirmed Problem Chronic constipation (519240711) Chronic constipation (564.00) Active confirmed Plan Of Treatment No Information Insurance Providers Payer Name Payer Address Payer Phone Subscriber Number Group Number Insured Name Patient Relationship to Insured Coverage Start Date Coverage End Date MEDICARE OF [place] [address] [place] [phone] [id number] [facility] Self - patient is the insured MEDICAID OF [facility] [address] [place] [address] [id number] [facility] Self - patient is the insured Medical (General) History Medical History History ICD Code GERD with hx of N/V-previous ly seen by Dr. Collins and treated for positive H.pylori serology-subsequent bx were neg for that; had EGD with me in 2007 with the finding of a moderate-sized HH--no Celis's; 24 hr pH study was neg. and motility study was OK-normal motility and a low LES seizures psychiatric illness with auditory and vi sual hallucinations-schizophrenia Denies VT,DM,CVA,Lung disease,renal dise ase Hyperlipidemia HTN Wears oxygen at night--? Sleep apnea Surgical History Surgery Date(Month/Year) cholecystectomy
--- NOTE | 2025-02-09 17:45 | ED_ITS ---
HPI - GI Bleed General Chief complaint: GI Bleed Stated complaint: RECTAL BLEEDING, BRIGHT RED BLOOD PER EMS History of Present Illness HPI Narrative: Patient is a 59-year-old male presents today with having lower abdominal pain also having diarrhea then all blood. Patient complains of pain localized to that area there is no pain on urination. There is no chest pain there is no shortness of breath there is no diaphoresis has a history of irregular heartbeat and is currently on Eliquis. Patient is from home. No travel history. No recent antibiotics. Related Data Allergies Allergy/AdvReac Type Severity Reaction Status Date / Time aspirin (ASA) Allergy Unknown vomiting Verified 02/09/25 17:10 Penicillins (PENICILLINS) Allergy Unknown pt states Verified 02/09/25 17:10 he turns red Review of Systems 2 Review of Systems: Positive lower abdominal pain Yes all other systems are reviewed and are negative [facility] Past Medical History Attestation statement: The following information was validated with the patient. Social History Social History Alcohol intake: never Advance Directives: No Advance Directives Information Provided: No Do you have a plan to hurt others: No Plan Physical Exam 2 Exam: Exam: Appearance: Alert. Oriented X3. No acute distress. Eyes: Pupils equal, round and reactive to light. ENT: Pharynx normal. Neck: Normal inspection. Neck supple. No lymph nodes noted. No crepitus CVS: Normal heart rate and rhythm. Pulses normal. Normal S1 and S2 Respiratory: No respiratory distress. Breath sounds normal. No Wheezing. No rales Abdomen: Mild bilateral lower abdominal tenderness there is no rebound or guarding. No rigidity. No distention. good BS x4 rectal exam was done with tech present. Minimal amount of blood mixed with stool noted. Skin: Skin warm and dry. Normal skin color. Normal skin turgor. Extremities: No lower extremity edema. Neurovascular intact to all extremities. No Lacerations. No Rash Neuro: Oriented X 3. No motor deficit. No sensory deficit. Moving all extermities. No slurred speech Vital Signs: Vital Signs: Last Vital Signs Temp 97.5 F 02/09/25 22:50 Pulse 78 02/09/25 22:50 Resp 20 02/09/25 22:50 BP 106/65 02/09/25 22:50 Pulse Ox 93 12/06/25 22:50 O2 Del Method Room Air 02/09/25 22:50 BMI result Body Mass Index 39.5 Medications Administered Discontinued Medications Generic Name Dose Route Start Last Admin Trade Name Yolis PRN Reason Stop Dose Admin Hydromorphone HCl 0.5 mg 02/09/25 17:43 02/09/25 17:56 Hydromorphone Hcl 0.5 Mg/0.5 Ml Syringe IVPUSH 02/09/25 17:44 0.5 mg ONCE ONE Administration Protocol Sodium Chloride 1,000 mls @ 999 mls/hr 02/09/25 17:45 02/09/25 21:10 Ns IV 02/09/25 18:45 Infused .Q1H1M JESSICA Infusion Iohexol 100 ml 02/09/25 19:46 02/09/25 19:46 Iohexol 350 Mg/Ml 100 Ml Infus..Btl IV 02/09/25 19:47 85 ml ONCE ONE Administration Ondansetron HCl 4 mg 02/09/25 17:43 02/09/25 17:55 Ondansetron Hcl 4 Mg/2 Ml Vial IVPUSH 02/09/25 17:44 4 mg ONCE ONE Administration Medical Decision Making Medical Decision Making [facility] Narrative: I did a rectal exam on patient it showed just mucus that was heme-positive. Patient's hemoglobin came back at 13. This is actually better than baseline 11. His symptom has resolved his abdominal pain is gone his CT scan of the abdomen is grossly negative. I had a discussion with patient. Feels well no acute distress wants to go home. Will discharge home. Consulted GI. Patient can be followed up on an outpatient basis with her primary physician and GI.. In stable condition. Differential Diagnosis Differential Diagnoses: The differential diagnosis associated with the presentation includes GI bleed, obstruction, diverticulitis Admission/Observation Consideration of admission/observation: Escalation of care including admission/observation considered Consult Healthcare Provider Management of the patient was discussed with: International Logistics Manager (GI) Lab Data [facility] Lab Attestation statement: I reviewed the patient's lab results. 02/09/25 18:03 02/09/25 18:03 Labs: Lab Results 02/09/25 02/09/25 Range/Units 18:03 18:10 WBC 6.5 (4.8-10.8) X10*3/uL RBC 4.73 (4.60-5.80) X10*6/uL Hgb 13.5 L (14.0-18.0) g/dl Hct 40.1 L (42.0-52.0) % MCV 84.8 (80.0-98.0) fL MCH 28.5 (27.0-33.0) pg MCHC 33.7 (31.0-36.0) g/dl RDW 13.1 (11.0-16.0) % Plt Count 230 (160-400) X10*3/uL MPV 9.8 (9.4-12.4) fL Immature Gran % (Auto) 0.5 H (0.0-0.4) % Neut % (Auto) 50.2 (45-73) % Lymph % (Auto) 36.4 (20-40) % [place] % (Auto) 8.1 (2-11) % Eos % (Auto) 3.4 (0-4) % Baso % (Auto) 1.4 (0-2) % Lymph # (Auto) 2.4 (1.2-4.9) X10*3/uL [place] # (Auto) 0.5 (0.1-1.2) X10*3/uL Eos # (Auto) 0.2 (0.0-0.4) X10*3/uL Baso # (Auto) 0.1 (0.0-0.2) X10*3/uL Abs Immat Gran (auto) 0.03 (0.00-0.03) X10*3/uL Absolute Neuts (auto) 3.3 (2.0-8.3) x10*3/uL Absolute Nucleated RBC 0.000 (0.0-0.012) X10*3/uL Nucleated RBC % (auto) 0.0 (0.0-0.2) /100WBC PT 12.6 (11.2-13.5) SEC INR 1.0 (0.9-1.1) Sodium 135 (135-145) mmol/L Potassium 4.0 (3.3-5.1) mmol/L Chloride 103 (96-108) mmol/L Carbon Dioxide 24 (22-29) mmol/L Anion Gap 12 (12-20) BUN 9 (9-16) mg/dL Creatinine 0.71 (0.5-1.4) mg/dL Estim Creat Clear Calc 125.4 Estimated GFR > 60 Random Glucose 159 H (60-115) mg/dL Calcium 8.7 (8.4-10.2) mg/dL Total Bilirubin 0.5 (0.0-1.0) mg/dL Direct Bilirubin 0.1 (0.0-0.5) mg/dL AST 48 H (5-37) U/L ALT 72 H (0-40) U/L Alkaline Phosphatase 62 (39-117) U/L Total Protein 7.1 (6.5-8.0) g/dL Albumin 4.3 (3.5-5.0) g/dL Lipase 22 (8-78) U/L Urine Color Yellow Urine Appearance Clear Urine pH 6.0 (5.0-9.0) Ur Specific [place] 1.015 (1.005-1.025) Urine Protein Negative (Neg-Trace) mg/dL Urine Glucose (UA) 100 H (Negative) mg/dL Urine Ketones Negative (Negative) mg/dL Urine Blood Negative (Negative) Urine Nitrite Negative (Negative) Ur Leukocyte Esterase Negative (Negative) Urine RBC 0-2 (0-2) /HPF Urine WBC 0-5 (0-5) /HPF Ur Squamous Epith Cells 0-2 (0-2) /HPF Urine Bacteria None Seen (None Seen) Hyaline Casts 0-2 (0-2) /LPF Stool Occult Blood POSITIVE (NEGATIVE) Blood Type O Positive Antibody Screen NEGATIVE Independent Interpretation I performed an independent interpretation of an: CT Scan (CT scan of the abdomen showed no acute obstruction abscess perforation) Radiology Impression Discussion of test interpretation with radiology: I have reviewed the radiologist's reading. Chronic Conditions History of atrial fibrillation on Eliquis Social Determinants Patient?s care significantly limited by Social Determinants of Health including: Problems related to primary support group Discharge Plan Discharge Clinical Impression: Colitis Patient Disposition: Home, Self-Care Instructions: Colitis (ED) Referrals: John Jacobson MD [Physician, Gastroenterology] - 02/13/25 Print Language: Macanese
[2025-02-09 18:11] VITALS: BP 101/50; PULSE 78; RESP 20; O2SAT 100
[2025-02-09 18:15] LABS: MANUAL DIFF FLAG NO; OBS Int Ctl Valid YES
[2025-02-09 18:16] LABS: Hematocrit 40.1 % (42.0-52.0); Hemoglobin 13.5 g/dl (14.0-18.0); Imm Gran Abs Auto 0.03 X10*3/uL (0.00-0.03); Imm Gran Pct Auto 0.5 % (0.0-0.4); Lymphocytes Absolute Auto 2.4 X10*3/uL (1.2-4.9); Mean Corpuscular HGB Conc 33.7 g/dl (31.0-36.0); Mean Corpuscular Hemoglobin 28.5 pg (27.0-33.0); Mean Corpuscular Volume 84.8 fL (80.0-98.0); NRBC Abs Auto 0.000 X10*3/uL (0.0-0.012); NRBC Pct Auto 0.0 /100WBC (0.0-0.2); Platelet Count 230 X10*3/uL (160-400); Red Blood Count 4.73 X10*6/uL (4.60-5.80); White Blood Count 6.5 X10*3/uL (4.8-10.8)
[2025-02-09 18:17] LABS: Appearance Urine Clear; Glucose Urine UA 100 mg/dL (Negative); OBS1 POSITIVE (NEGATIVE); PH 6.0 (5.0-9.0); Specific Gravity - Urine 1.015 (1.005-1.025)
[2025-02-09 18:24] LABS: INTERNATIONAL NORM RATIO 1.0 (0.9-1.1); Prothrombin Time 12.6 SEC (11.2-13.5)
[2025-02-09 18:29] LABS: Alanine Aminotransferase 72 U/L (0-40); Albumin Level 4.3 g/dL (3.5-5.0); Alkaline Phosphatase 62 U/L (39-117); Anion Gap 12 (12-20); Aspartate Amino Transferase 48 U/L (5-37); Blood Urea Nitrogen 9 mg/dL (9-16); Calcium 8.7 mg/dL (8.4-10.2); Carbon Dioxide 24 mmol/L (22-29); Chloride 103 mmol/L (96-108); Creatinine Clr Calc Pharmacy 125.4; Estimated Glomerular Filt Rate > 60; Lipase 22 U/L (8-78); Potassium 4.0 mmol/L (3.3-5.1); Sodium 135 mmol/L (135-145); Total Protein 7.1 g/dL (6.5-8.0)
[2025-02-09] MEDS: iohexoL 350 MG/ML 100 ML INFUS..BTL IV (19:46)
--- NOTE | 2025-02-09 20:00 | PC.NURSE ---
this RN assumed care of this pt @1900, pt noted to be sitting upright in bed, pending CT scan. @approximately 194 pt brought to imaging to obtain CT scan, IVF disconnected @1999 pt returned to pt room, IVF reconnected and flowing. pt appears to be in no apparent distress at this time, connected to cardiac monitoring, call sumner within reach for safety
--- NOTE | 2025-02-09 20:30 | PC.NURSE ---
pt educated to maintain straight arm in order to allow IVF to be infused
[2025-02-09 20:53] VITALS: BP 109/71; PULSE 72; RESP 18; TEMP 36.5; O2SAT 96
[2025-02-09 22:50] VITALS: BP 106/65; PULSE 78; RESP 20; TEMP 36.4; O2SAT 93
--- NOTE | 2025-02-09 23:34 | PC.NURSE ---
This RN assumed pt care @ 2330 Pt a&ox4, no signs of distress. Pt denies pain at this time Plan of care ongoing.
[2025-02-09 23:35] VITALS: BP 106/65; PULSE 78; RESP 20; TEMP 36.4; O2SAT 93
== END 2025-02-09 23:36 | disposition home or self-care (01) ==
PROVIDERS: Emergency Provider Emergency Medicine Emergency Medical Services
DX: K52.9 Noninfective gastroenteritis and colitis, unspecified (principal); R00.9 Unspecified abnormalities of heart beat; R11.0 Nausea; Z51.81 Encounter for therapeutic drug level monitoring; Z79.01 Long term (current) use of anticoagulants; Z79.899 Other long term (current) drug therapy
CPT/HCPCS: 36415; 74177; 80048; 80076; 81001; 82272; 83690; 85025; 85610; 86850; 86900; 86901; 96361; 96374; 96375; 99284; J1171; J2405; Q9967

== ENCOUNTER → 2025-02-09 17:43 | Outpatient (BNV) | payer OTHER, SELFPAY | PROVIDERS: Emergency Provider Emergency Medicine Emergency Medical Services; Visit Provider Radiology Diagnostic Radiology | DX: K76.0 Fatty (change of) liver, not elsewhere classified (principal) | CPT/HCPCS: 74177 ==